=== PATIENT | female | born 1945 | race Caucasian/White ===

== ENCOUNTER → 2018-03-09 10:55 | Outpatient (CLI) | payer MEDICARE, OTHER, SELFPAY ==
[2018-03-09 13:05] LABS: Abs Immature Grans 0.01 k/cumm (0.0-0.09); Absolute Basophil Count 0.02 k/cumm (0.0-0.2); Absolute Eosinophil Count 0.14 k/cumm (0.0-0.7); Absolute Lymphocyte Count 1.67 k/cumm (1.2-3.4); Absolute Monocyte Count 0.35 k/cumm (0.11-0.7); Absolute Neutrophil Count 3.32 k/cumm (1.2-6.7); Basophils % 0.4; Eosinophils % 2.5; HCT 38.4 % (36.0-46.0); HGB 12.8 g/dL (12.0-15.5); Immature Grans % 0.2; Lymphocytes % 30.3; Mean Corp. HGB Concentration 33.3 g/dL (32.0-36.0); Mean Corpuscular Hemoglobin 31.7 pg (27.0-33.0); Mean Platelet Volume 11.2 fL (8.0-11.0); Monocytes % 6.4; Neutrophils % 60.2; Platelet Count 235 x1000/uL (130-400); RBC 4.04 m/cumm (4.00-5.20); White Blood Cell Count 5.51 k/cumm (4.4-10.8)
[2018-03-09 13:08] LABS: TSH (W/Ref FT4) 2.08 uIU/mL (0.358-3.74)
[2018-03-09 14:30] LABS: Hemoglobin A1C 6.6 % (4.5-6.2)
== END ==
PROVIDERS: PCP Family Medicine; Visit Provider Internal Medicine
DX: D64.9 Anemia, unspecified (principal); E03.9 Hypothyroidism, unspecified; E11.9 Type 2 diabetes mellitus without complications; J40 Bronchitis, not specified as acute or chronic
CPT/HCPCS: 36415; 83036; 84443; 85025

== ENCOUNTER → 2018-03-11 15:13 | Outpatient (CLI) | payer MEDICARE, OTHER, SELFPAY ==
--- NOTE | 2018-03-11 15:18 | DI.REPORT_ITS ---
SYMPTOM/DIAGNOSIS: WORSENING SOB, SUSPECTING PNEUMONIA J18.9 PA AND LATERAL CHEST: 03/11 The heart is normal in size. The lungs are clear. The mediastinal structures and pleura appear intact. CONCLUSION: Normal chest.
== END ==
PROVIDERS: PCP Family Medicine; Visit Provider Nurse Practitioner Family
DX: R06.02 Shortness of breath (principal); J18.9 Pneumonia, unspecified organism
CPT/HCPCS: 71046

== ENCOUNTER 2018-06-22 11:18 | Outpatient (CLI) | payer MEDICARE, OTHER, SELFPAY ==
[2018-06-22 13:44] LABS: ALT 36 U/L (12-78); AST 22 U/L (15-37); Albumin 4.2 g/dL (3.4-5.0); Alkaline Phosphatase 122 U/L (46-116); BUN 31 mg/dL (7-18); Bilirubin, Total 0.6 mg/dL (0.2-1.0); CREATININE 1.03 mg/dL (0.55-1.02); Calcium 9.7 mg/dL (8.5-10.1); Chloride 103 mmol/L (98-107); Estimated GFR 52.82 (mL/min/1.73m2); Glucose 117 mg/dL (70-100); Potassium 4.3 mmol/L (3.5-5.1); Sodium 141 mmol/L (136-145); TSH (W/Ref FT4) 2.24 uIU/mL (0.358-3.74); Total Protein 7.6 g/dL (6.4-8.2); Uric Acid 5.2 mg/dL (2.6-6.0)
[2018-06-22 13:55] LABS: Cholesterol 245 mg/dL (50-200); HDL Cholesterol 33 mg/dL (40-60); LDL CHOLESTEROL 127 mg/dL (<100); Triglyceride 441 mg/dL (30-150)
[2018-06-22 14:16] LABS: COMMENT (LAB VIEW ONLY) < 13.00 mg/dL
[2018-06-22 14:50] LABS: Hemoglobin A1C 6.5 % (4.5-6.2)
== END 2018-06-22 11:38 ==
PROVIDERS: PCP Family Medicine; Visit Provider Family Medicine
DX: E78.5 Hyperlipidemia, unspecified (principal); I10 Essential (primary) hypertension; E11.9 Type 2 diabetes mellitus without complications; E03.9 Hypothyroidism, unspecified
CPT/HCPCS: 36415; 80053; 80061; 83721; 82043; 82570; 83036; 84443; 84550

== ENCOUNTER 2018-07-06 00:58 | Outpatient (CLI) | payer MEDICARE, OTHER, SELFPAY ==
--- NOTE | 2018-07-06 08:30 | DI.MAMMO_ITS ---
SYMPTOM/DIAGNOSIS: SCREENING, Z12.31 MAMMOGRAMS: Mammograms were interpreted according to the usual protocol including computer analysis with CAD system, tomosynthesis and C view imaging. Comparison is made with exams from 2270-7100. The breasts are composed of scattered fibroglandular densities, breast density, Category B. No suspicious masses or suspicious microcalcifications are seen. There has been no significant change. IMPRESSION: Category 1B, negative mammogram. Yearly screening mammography is recommended. [facility] ASSESSMENT OF FINDINGS: Negative. Category 1. Patient will receive a letter notifying them of these results. BI-RADS category B. There are scattered areas of fibroglandular density.
== END 2018-07-06 01:18 ==
PROVIDERS: PCP Family Medicine; Visit Provider Family Medicine
DX: Z12.31 Encounter for screening mammogram for malignant neoplasm of breast (principal)
CPT/HCPCS: 77063; 77067

== ENCOUNTER 2018-12-05 22:23 | Emergency (ER) | payer MEDICARE, OTHER, SELFPAY ==
[2018-12-05 22:29] VITALS: BP 214/67; PULSE 66; RESP 18; TEMP 36.6; O2SAT 96
--- NOTE | 2018-12-05 22:37 | DI.CT_ITS ---
SYMPTOMS/DIAGNOSIS: RINGING IN EARS, VERTIGO NONCONTRAST HEAD CT: Comparison is made with [id number]. No intracranial hemorrhage, mass or infarct is seen. There is no evidence of skull fracture or sinus opacification. The ventricles are normal in size. There is no significant atrophy or white matter changes. IMPRESSION: Negative head CT.
[2018-12-05 22:40] VITALS: RESP 18
[2018-12-05] MEDS: Normal Saline 1,000 ML 150 ML IV (23:02)
[2018-12-05 23:14] LABS: Abs Immature Grans 0.01 k/cumm (0.0-0.09); Absolute Basophil Count 0.02 k/cumm (0.0-0.2); Absolute Eosinophil Count 0.19 k/cumm (0.0-0.7); Absolute Lymphocyte Count 2.25 k/cumm (1.2-3.4); Absolute Monocyte Count 0.51 k/cumm (0.11-0.7); Absolute Neutrophil Count 3.53 k/cumm (1.2-6.7); Basophils % 0.3; Eosinophils % 2.9; HCT 40.4 % (36.0-46.0); Immature Grans % 0.2; Lymphocytes % 34.6; Mean Corp. HGB Concentration 34.7 g/dL (32.0-36.0); Mean Corpuscular Hemoglobin 32.4 pg (27.0-33.0); Mean Corpuscular Volume 93.5 fL (80-95); Monocytes % 7.8; Neutrophils % 54.2; Platelet Count 206 x1000/uL (130-400); RBC 4.32 m/cumm (4.00-5.20); RBC Distribution Width 14.3 % (11.7-14.6); White Blood Cell Count 6.51 k/cumm (4.4-10.8)
[2018-12-05 23:19] VITALS: BP 160/60; PULSE 66; RESP 18; O2SAT 97
--- NOTE | 2018-12-05 23:22 | ED.GENADUL_ITS ---
Discharge Plan Disposition Patient Disposition: HOME Condition: Fair Discharge Details Chief Complaint: GenMedical Clinical Impression: Acute labyrinthitis Primary Care Provider: Helen Jimenez ED Provider: Treasure Figueroa Home Meds and New Rx's Prescriptions: New meclizine 25 mg tablet 25 mg PO TID PRN (Reason: motion sickness) Qty: 14 RF: 0 Continued rosuvastatin 5 mg tablet 5 mg PO DAILY Qty: 30 RF: 5 omega-3 fatty acids 1,000 MG capsule 1,000 mg PO DAILY RF: 0 cholecalciferol (vitamin D3) 1,000 UNIT capsule 1,000 unit PO DAILY Qty: 180 RF: 4 multivitamin [Multi-Day] 1 EACH tablet 1 ea PO DAILY RF: 0 spironolactone [Aldactone] 25 MG tablet 25 mg PO DAILY Qty: 180 RF: 4 levothyroxine 100 MCG tablet 100 mcg PO DAILY Qty: 90 RF: 12 furosemide [Lasix] 80 MG tablet 80 mg PO QAM Qty: 90 RF: 4 allopurinol 300 MG tablet 300 mg PO DAILY Qty: 90 RF: 4 magnesium chloride [Mag 64] 64 MG tablet,delayed release (DR/EC) 64 mg PO DAILY Qty: 90 RF: 12 potassium chloride 20 mEq tablet,ER particles/crystals 20 meq PO DAILY Qty: 90 RF: 12 vitamin B complex [B-Complex] tablet 1 tab PO QWEEK RF: 0 No Action levothyroxine 112 mcg capsule 112 mcg PO DAILY Qty: 30 RF: 1 Discharge Instructions Instructions: Meclizine (By mouth), Labyrinthitis (ED) Additional Instructions: Your labs and CT scan are reassuring. Encourage hydration. Use Meclizine 25mg tablets 3 days a day as needed for symptomatic relief. Continue with medications as previously prescribed. Please follow up with your primary care this week for reevaluation. If you develop headache, palpitations, chest pain, fevers/chills, weakness, sensation change or other new/worsening symptoms please seek care urgently once again. Referrals: Helen Jimenez MD, [place] [Primary Care Provider] - Discharge Data Discharge Date/Time-TO BE ENTERED AT DEPARTURE: 12/06/18 00:43 Medical Decision Making Patient is a 73-year-old female presenting today with chief complaint of disequilibrium and ringing in the ears. Ringing the ears has been ongoing for the past week. She denies any head trauma or headache. No recent illness. Denies any palpitations, chest pain, shortness of breath. She reports that tonight when she tried to go to sleep she was unable to do so secondary to the disequilibrium. Denies any URI symptoms. Began rosuvastatin 2 weeks ago. I reviewed UpToDate and do not see any evidence that this is the source of her symptoms although still on differential. On exam, patient appears well, she is nontoxic, resting comfortably. Neuroexam, cardiac and pulmonary exam without abnormality. Trice maneuver was provocative of symptoms to the right, no symptoms to the left. No nystagmus. She reports, when symptoms are elicited, that the room appears to shift on a diagonal axis, still denies any dizziness or spinning. Plan to obtain labs, head CT. Her symptoms sound to be vertiginous in origin as they are so motion dependent. While her description does not sound classic for vertigo, this is on differential. Also concidered medication reaction, intracranial lesion/mass, cardiac souce although ACS unlikely with history and symptoms. Labs significant for slightly elevated alk phos, this is typical for the patient. TSH 7.21, free T4 pending. CT reviewed by radiologist: COMPARISON: CT HEAD AND CSPINE W/O CONTRAST 07/06/2015 12:37 PM FINDINGS: Brain: Typical for age. No hemorrhage. No evidence of acute infarct. No mass. Ventricles: No ventriculomegaly. Bones/joints: Unremarkable. Sinuses: No sinus fluid. Mastoid air cells: Unremarkable. Soft tissues: Unremarkable. IMPRESSION: No acute intracranial abnormality. Free T4 0.89. Discussed findings with the patient. Will given Meclizine and reassess. Her symptoms seem vertiginously based and are elicited with supine and right leaning position. She reports it was when laying on her right side tonight that symptoms maximalized at home. We discussed possible source of labyrinthitis. Patient feels improved with Meclizine, will be discharged home. She is questioning if this is associated with her medication, do not see evidence argelia tthis is source, advised she continue with this. This medication can cause thyr oid disfunction but free T4 is appropriate. She is feeling improved. Plan to discharge to home with prompt follow up with primary care. No evidence of emergent cause at this time. Patietn given strict return precautions. She will call PCP tomorrow morning to schedule appointment this week. All of her questions and concerns were addressed, she is in agreement with this plan. Will continue with Meclizine for symptomatic management. HPI General Mode of arrival: ambulatory . Date/Time Provider Initiated Documentation: 12/05/18 22:25 . Limitations to Documentation: no limitations . Information obtained by: patient, family and RN notes reviewed . HPI Narrative: Patient is a 73-year-old female with history of tachybradycardia syndrome, sleep apnea, retinal detachment, hypothyroidism, hyperlipidemia, osteoarthritis, hypertension, diabetes, cardiomyopathy. She is presenting today, accompanied by her , with chief complaint of odd sensation. She reports that for the past week she has noted ringing in her ears. Initially, patient was concerned that this may be associated with new medication, patient began rosuvastatin 2 weeks ago. She reports that over the past 2 days that she has noted disequilibrium. She denies any true dizziness but states that with movements, she becomes unaware of where she is in space i.e. when the patient lays down she feels that she is in an extreme of Trendelenburg position. She denies any headache but endorses facial pressure. No nasal congestion or sinus pain. Denies any fevers or chills. Denies any recent head injury. No recent travel. She denies any chest pain or shortness of breath. No nausea associated with her symptoms. Has not had symptoms like this historically but does report that she has had multiple syncopal episodes particularly when she was younger Related Data Home Medications Medication Instructions Recorded Confirmed cholecalciferol (vitamin D3) 1,000 unit PO DAILY #180 01/27/13 12/08/18 omega-3 fatty acids 1,000 mg PO DAILY 01/27/13 12/08/18 multivitamin [Multi-Day] 1 ea PO DAILY 10/07/16 12/08/18 allopurinol 300 mg PO DAILY #90 tab-cap 11/24/17 12/08/18 furosemide [Lasix] 80 mg PO QAM #90 tab-cap 11/24/17 12/08/18 levothyroxine 100 mcg PO DAILY #90 tab-cap 11/24/17 12/08/18 magnesium chloride [Mag 64] 64 mg PO DAILY #90 tab-cap 11/24/17 12/08/18 spironolactone [Aldactone] 25 mg PO DAILY #180 tab-cap 11/24/17 12/08/18 potassium chloride ER 20 mEq 20 meq PO DAILY #90 tab-cap 08/07/18 12/08/18 tablet,extended release(part/cryst) vitamin B complex tablet 1 tab PO QWEEK tab 10/20/18 12/08/18 rosuvastatin 5 mg tablet 5 mg PO DAILY #30 tab 11/14/18 12/08/18 meclizine 25 mg PO TID PRN #14 tab 12/06/18 12/08/18 levothyroxine 112 mcg capsule 112 mcg PO DAILY #30 cap 12/08/18 12/08/18 Previous Rx's Medication Instructions Recorded allopurinol 300 mg PO DAILY #90 tab-cap 11/24/17 furosemide [Lasix] 80 mg PO QAM #90 tab-cap 11/24/17 levothyroxine 100 mcg PO DAILY #90 tab-cap 11/24/17 magnesium chloride [Mag 64] 64 mg PO DAILY #90 tab-cap 11/24/17 spironolactone [Aldactone] 25 mg PO DAILY #180 tab-cap 11/24/17 potassium chloride ER 20 mEq 20 meq PO DAILY #90 tab-cap 08/07/18 tablet,extended release(part/cryst) rosuvastatin 5 mg tablet 5 mg PO DAILY #30 tab 11/14/18 meclizine 25 mg PO TID PRN #14 tab 12/06/18 levothyroxine 112 mcg capsule 112 mcg PO DAILY #30 cap 12/08/18 Allergies Allergy/AdvReac Type Severity Reaction Status Date / Time Penicillins Allergy Severe HIVES Verified 12/08/18 10:52 celery Allergy Intermediate SNEEZING Verified 12/08/18 10:52 AND RASH latex Allergy Intermediate RASH Verified 12/08/18 10:52 niacin Allergy Intermediate HIVES Verified 12/08/18 10:52 atorvastatin AdvReac Intermediate VOMITING/DI Verified 12/08/18 10:52 ZZINESS gabapentin AdvReac Intermediate Other (See Verified 12/08/18 10:52 Comment) gemfibrozil AdvReac Intermediate Verified 12/08/18 10:52 nifedipine AdvReac Intermediate cough Verified 12/08/18 10:52 rofecoxib AdvReac Intermediate stomach Verified 12/08/18 10:52 upset General Stated Complaint: GenMedical VICK: 3 Review of Systems Constitutional Reports as per HPI, Denies chills, Denies fever(s), Denies headache(s), Denies lethargy, Denies poor appetite and Denies weakness Eyes Denies change in vision and Denies loss of vision ENT Reports as per HPI, Reports abnormal hearing (ringing), Denies vertigo, Denies dizziness, Denies ear discharge, Denies otalgia, Denies headache(s) and Reports disequilibrium Cardiovascular Reports as per HPI, Denies chest pain, Denies syncope, Denies lightheadedness, Denies radiating jaw, neck or arm pain, Denies palpitations, Denies dyspnea and Denies dyspnea on exertion Respiratory Reports as per HPI, Denies chest congestion, Denies cough, Denies pain on inspiration, Denies pain with cough, Denies dyspnea, Denies dyspnea on exertion and Denies wheezing Gastrointestinal Reports as per HPI, Denies abdominal pain, Denies diarrhea, Denies nausea and Denies vomiting Musculoskeletal Reports as per HPI, Denies abnormal gait, Denies back pain and Denies tingling Integumentary/Breasts Reports as per HPI and Denies rash Neurologic Reports as per HPI, Reports abnormal hearing (ringing), Denies abnormal movements, Denies abnormal speech, Denies abnormal gait, Denies behavioral changes, Denies confusion, Denies vertigo, Denies dizziness, Denies syncope, Denies headache(s), Denies lack of coordination, Denies focal weakness, Denies loss of vision, Denies sensory deficit, Denies tingling, Denies paresthesias, Reports disequilibrium and Denies weakness Psychiatric Denies behavioral changes and Denies confusion Endocrine Denies palpitations Allergic/Immunologic Denies wheezing FOR[facility]LY [facility], [facility] Medical History Tachycardia-bradycardia (Chronic 11/24/17) Traumatic injury of head (Chronic 07/06/15) Sleep apnea (Chronic) Retinal detachment (Chronic 10/20/08) Low back pain (Chronic 06/26/06) Increased BMI (Chronic) Hypothyroidism (Chronic 04/12/13) Hyperlipidemia (Chronic) Hiatal hernia (Chronic) Hemorrhoids (Chronic) Gout (Chronic) Generalized osteoarthrosis (Chronic) Essential hypertension (Chronic 08/03/13) Diabetes mellitus (Chronic 10/01/16) Complete tear of rotator cuff (Chronic 12/03/16) Cardiomyopathy (Chronic 01/13/17) Cardiomegaly (Chronic 06/26/01) Surgical History Arthroplasty of knee (~2009) BONE SPUR section Cholecystectomy (~2002) Colonoscopy - MAC HAND (08/06/11) NECK PROCEDURES Rotator Cuff Repair Social History Smoking/Tobacco Use Status: Never Second Hand Exposure: Yes (25+ YEARS AGO) Alcohol Intake: never Drug use: Never Substance use type: does not use Household members: spouse 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 What type of physical activity do you participate in: none Duration: 15-30 minutes/day Frequency: daily Michelle/Islam: Catholic Special michelle needs: No Do you feel safe at home: Yes Do you feel safe in your relationship?: Yes Exam Const General: cooperative, healthy appearing, comfortable, no acute distress and well developed Nutritional Appearance: average body habitus and well nourished Orientation: alert, awake and oriented x3 HENMT Head: normal to inspection Ears: hearing grossly normal bilaterally Mouth: moist mucous membranes Eyes General: appearance normal, both eyes and all related structures Alignment and Position: alignment normal Periorbital: periorbital findings normal Eyelids: eyelids normal Pupils: PERRL and normal by confrontation EOM: EOM intact bilaterally Direct ophthalmoscopy: normal light reflex Chest Chest: normal inspection of the chest, normal palpation of entire chest wall and no crepitus Resp Effort & Inspection: normal respiratory effort, able to speak in complete sentences and no respiratory distress Auscultation: clear to auscultation bilaterally, no rales, no rhonchi and no wheezes Cardio Rate: regular rate Rhythm: regular rhythm Heart Sounds: S1 normal and S2 normal GI Inspection: normal to inspection, no edema and non-distended Palpation: soft, no hepatosplenomegaly, not firm, no guarding, not rigid and nontender Auscultation: normal bowel sounds Back/Spine/Pelvis Back: no CVA tenderness Thoracic/Lumbar Spine: thoracic and lumbar spine normal to inspection Skin General skin exam: no rashes or lesions noted Trauma: no lacerations or abrasions Neuro General: alert, awake, oriented x3 and no meningeal signs Cranial Nerves: CN's II-XI intact bilaterally Cognition: normal cognition Speech: speech normal Gait: normal gait Motor: muscle tone normal throughout, strength 5/5 throughout, no pronator drift, no movement abnormalities noted and no fasciculations Sensory Exam: no sensory deficits noted Coordination: [id number] test normal, [id number] test normal and rapid alternating movement UE normal Extrem General: normal to inspection, normal capillary refill, no pedal edema, no calf tenderness and normal gait Psych Appearance: grossly normal and well kempt Mental Status: mental status grossly normal Speech and Movement: speech and movement normal Course Vital Signs Temperature 36.6 C 12/05/18 22:29 Pulse 66 12/05/18 22:29 Respiratory Rate 18 12/05/18 22:29 Blood Pressure 214/67 H 12/05/18 22:29 Pulse Oximetry 96 12/05/18 22:29 Temperature 36.6 C 12/05/18 22:29 Temperature Source Skin 12/05/18 22:29 Pulse 66 12/05/18 22:29 Respiratory Rate 18 12/05/18 22:40 Respiratory Effort Non-Labored 12/05/18 22:40 Respiratory Depth Normal 12/05/18 22:40 Respiratory Pattern Normal 12/05/18 22:40 Blood Pressure 214/67 H 12/05/18 22:29 Blood Pressure Position Sitting 12/05/18 22:29 Pulse Oximetry 96 12/05/18 22:29 Oxygen Delivery Method Room Air 12/05/18 22:29 Oxygen Flow Rate 0 12/05/18 22:29 Pain Level 0 12/05/18 22:29 Lab/Test Results Lab/Test Results: Laboratory Tests Range/Units 12/05/18 22:54 WBC (4.4-10.8) k/cumm 6.51 RBC (4.00-5.20) m/cumm 4.32 Hgb (12.0-15.5) g/dL 14.0 Hct (36.0-46.0) % 40.4 MCV (80-95) fL 93.5 MCH (27.0-33.0) pg 32.4 MCHC (32.0-36.0) g/dL 34.7 RDW (11.7-14.6) % 14.3 Plt Count (130-400) x1000/uL 206 MPV (8.0-11.0) fL 11.0 Immature Gran % 0.2 Neutrophils % 54.2 Lymphocytes % 34.6 Monocytes % 7.8 Eosinophils % 2.9 Basophils % 0.3 Absolute Neutrophils (1.2-6.7) k/cumm 3.53 Absolute Lymphocytes (1.2-3.4) k/cumm 2.25 Absolute Monocytes (0.11-0.7) k/cumm 0.51 Absolute Eosinophils (0.0-0.7) k/cumm 0.19 Absolute Basophils (0.0-0.2) k/cumm 0.02
[2018-12-05 23:30] LABS: ALT 38 U/L (12-78); Albumin 3.9 g/dL (3.4-5.0); Alkaline Phosphatase 134 U/L (46-116); Anion Gap 7.3 mmol/L (3-11); BUN 33 mg/dL (7-18); Bilirubin, Total 0.3 mg/dL (0.2-1.0); CO2 29.7 mmol/L (21.0-32.0); CREATININE 0.94 mg/dL (0.55-1.02); Calcium 9.2 mg/dL (8.5-10.1); Chloride 102 mmol/L (98-107); Estimated GFR 58.53 (mL/min/1.73m2); Glucose 165 mg/dL (70-100); Magnesium 2.1 mg/dL (1.8-2.4); Potassium 3.8 mmol/L (3.5-5.1); Sodium 139 mmol/L (136-145); Total Protein 7.6 g/dL (6.4-8.2)
[2018-12-05 23:32] LABS: Troponin I < 0.02 ng/mL (0.00-0.06)
[2018-12-05 23:38] LABS: TSH (W/Ref FT4) 7.21 uIU/mL (0.358-3.74)
--- NOTE | 2018-12-05 23:42 | DI.VRAD_ITS ---
EXAM: CT Head Without Contrast EXAM DATE/TIME: 12/05/2018 10:39 PM CLINICAL HISTORY: 73 years old, female; Signs and symptoms; Other: Ringing in ears, vertigo TECHNIQUE: Imaging protocol: Axial computed tomography images of the head/brain without contrast. Coronal and sagittal reformatted images were created and reviewed. COMPARISON: CT HEAD AND CSPINE W/O CONTRAST 07/06/2015 12:37 PM FINDINGS: Brain: Typical for age. No hemorrhage. No evidence of acute infarct. No mass. Ventricles: No ventriculomegaly. Bones/joints: Unremarkable. Sinuses: No sinus fluid. Mastoid air cells: Unremarkable. Soft tissues: Unremarkable. IMPRESSION: No acute intracranial abnormality. Dictated and Authenticated by: Gurinder Trevino MD. Ordering:JAMES Amanda MD
[2018-12-05 23:54] LABS: AST 10 U/L (15-37); FREE T4 0.89 ng/dL (0.76-1.46)
[2018-12-06] MEDS: Meclizine 25 MG TAB PO ×2 (00:08→00:37)
[2018-12-06 00:32] VITALS: BP 129/61; PULSE 61; RESP 16; TEMP 36.7; O2SAT 96
== END 2018-12-06 00:43 | disposition home or self-care (01) ==
PROVIDERS: Emergency Provider Physician Assistant; PCP Family Medicine
DX: H83.03 Labyrinthitis, bilateral (principal)
CPT/HCPCS: 36415; 80053; 96360; 96361; 99284; 70450; 83735; 84439; 84443; 84484; 85025

== ENCOUNTER 2019-02-18 01:59 | Outpatient (CLI) | payer MEDICARE, OTHER, SELFPAY ==
[2019-02-18 12:16] LABS: Hemoglobin A1C 6.8 % (4.5-6.2)
[2019-02-18 12:59] LABS: ALT 50 U/L (12-78); AST 23 U/L (15-37); Albumin 3.8 g/dL (3.4-5.0); Alkaline Phosphatase 123 U/L (46-116); Anion Gap 10.3 mmol/L (3-11); BUN 33 mg/dL (7-18); Bilirubin, Total 0.5 mg/dL (0.2-1.0); CO2 28.7 mmol/L (21.0-32.0); CREATININE 0.99 mg/dL (0.55-1.02); Calcium 9.2 mg/dL (8.5-10.1); Chloride 104 mmol/L (98-107); Cholesterol 189 mg/dL (50-200); Estimated GFR 55.14 (mL/min/1.73m2); Glucose 135 mg/dL (70-100); HDL Cholesterol 27 mg/dL (40-60); Magnesium 1.9 mg/dL (1.8-2.4); Potassium 4.9 mmol/L (3.5-5.1); Sodium 143 mmol/L (136-145); TSH (W/Ref FT4) 2.63 uIU/mL (0.36-3.74); Total Protein 6.8 g/dL (6.4-8.2); Triglyceride 513 mg/dL (30-150)
[2019-02-18 13:13] LABS: LDL CHOLESTEROL 71 mg/dL (<100)
[2019-02-18 13:36] LABS: Uric Acid 4.8 mg/dL (2.6-6.0)
== END 2019-02-18 02:19 ==
PROVIDERS: PCP Family Medicine
DX: E03.9 Hypothyroidism, unspecified (principal); E11.9 Type 2 diabetes mellitus without complications; E78.5 Hyperlipidemia, unspecified; I10 Essential (primary) hypertension; M10.9 Gout, unspecified
CPT/HCPCS: 36415; 80053; 80061; 83721; 83036; 83735; 84443; 84550

== ENCOUNTER 2019-07-22 00:38 | Outpatient (CLI) | payer MEDICARE, OTHER, SELFPAY ==
--- NOTE | 2019-07-22 07:41 | DI.MAMMO_ITS ---
EXAM: MG MAMMO SCREENING CLINICAL HISTORY: screening, Z12.39 TECHNIQUE: Bilateral full field digital CC and MLO mammographic images were obtained with 3D tomosyn thesis and utilizing computer aided detection (CAD). COMPARISON: Available for comparison. FINDINGS: Masses/Architectural Distortion: None seen. Microcalcifications: No suspicious pleomorphic-type are seen. Skin Thickening/Nipple Retraction: None. IMPRESSION: 1. No significant interval change with no specific features of malignancy noted. 2. Unless there is more urgent need, screening mammography is recommended, as per [employer] guidelines. ACR BI-RAD Category- 1 Negative Breast Density - Category B - Scattered areas of fibroglandular density A negative radiographic report should not delay biopsy if a dominant or clinically suspicious mass is present. Up to ten percent of cancers are not identified on mammography. A negative report may reinforce clinical impression. Adenosis and dense breasts may obscure an underlying neoplasm. False positive reports average 6 to 10%. Patient will receive a letter notifying them of these results.
== END 2019-07-22 00:58 ==
PROVIDERS: PCP Family Medicine; Visit Provider Family Medicine
DX: Z12.31 Encounter for screening mammogram for malignant neoplasm of breast (principal)
CPT/HCPCS: 77063; 77067

== ENCOUNTER 2019-09-19 22:24 | Emergency (ER) | payer MEDICARE, OTHER, SELFPAY ==
[2019-09-19 22:28] VITALS: BP 170/80; PULSE 71; RESP 16; TEMP 36.4; O2SAT 96
--- NOTE | 2019-09-19 22:39 | W.ED.GENAD ---
Discharge Plan Disposition Patient Disposition: HOME Condition: Stable Discharge Details Chief Complaint: Nk/Back Pain Clinical Impression: Back pain, Back pain, thoracic Primary Care Provider: Helen Jimenez ED Provider: Blaine Michelle Home Meds and New Rx's Prescriptions: New cyclobenzaprine 10 mg tablet 10 mg PO TID PRN (Reason: muscle spasm) Qty: 20 RF: 0 Continued allopurinol 300 mg tablet 150 mg PO DAILY RF: 0 furosemide [Lasix] 80 mg tablet 40 mg PO QAM RF: 0 omega-3 fatty acids 1,000 MG capsule 1,000 mg PO DAILY RF: 0 cholecalciferol (vitamin D3) 1,000 UNIT capsule 1,000 unit PO DAILY Qty: 180 RF: 4 multivitamin [Multi-Day] 1 EACH tablet 1 ea PO DAILY RF: 0 magnesium chloride [Mag 64] 64 MG tablet,delayed release (DR/EC) 64 mg PO DAILY Qty: 90 RF: 12 vitamin B complex [B-Complex] tablet 1 tab PO QWEEK RF: 0 levothyroxine 112 mcg capsule 112 mcg PO DAILY Qty: 90 RF: 3 spironolactone [Aldactone] 25 mg tablet 25 mg PO DAILY Qty: 180 RF: 4 rosuvastatin 5 mg tablet 5 mg PO DAILY Qty: 90 RF: 5 potassium chloride 20 mEq tablet,ER particles/crystals 20 meq PO DAILY Qty: 90 RF: 12 Discharge Instructions Instructions: Back Pain (ED) Additional Instructions: your lab work showed a mild increase in your liver function tests and the cat scan only showed a lung nodule. Your primary care provider should know about these to order additional testing in the future and follow up with them within a week if you have fevers, severe worsening pain or new pain such as abdominal pain or chest pain return to the emergency department. Also return for inability to urinate or weakness Medical Decision Making 73 yo female with hx of DM, htn, gout, comes in with 2 days of back pain. She states she had cold symptoms of dry cough and runny nose that resolved but then Friday started to have upper back pain that since has moved to the lower back and has shooting pain in the arms and legs and numbness in the hands. Denies chest pain, abdominal pain, weankess, urinary retention, fevers. She has steady gait, normal reflexes in the legs and no saddle anesthesia, no findings to suggest cauda equina or sea. Her pain is most in the lower mid back without palpable or visible deformities. She has no rashes. NOrmal pulses. This could be sciatica vs muscle spasm but given the numbness and shooting pains in the arms and legs concern for aortic dissection, will obtain labs and cta and monitor. patient's cta shows no acute findings, informed her of lung nodule. Labs show mild elevation of lfts and has no abd tenderness on exam, advised to have these repeated with pcp. She feels significantly better and still has no concerning neurological findings. Suspect musculoskeletal cause vs sciatica. Will try muscle relaxers and advised to f/u with pcp and return precautions given Differential Diagnosis Differential Diagnosis: dissection, spasm, sciatica Medical Records Medical records reviewed: Yes I reviewed the patient's medical records. Imaging Data Radiologic Study: Attestation: I personally reviewed and interpreted this imaging study as follows: Imaging: CT Scan Radiologist's impression: 2. Right middle lobe nodular opacities measuring up to 7 mm. As per Fleischner Society 2017 guidelines for follow-up and management of pulmonary nodules: For patients at low risk (minimal or absent history of smoking and of other known risk factors), recommend CT at 3-6 months, then consider CT at 18-24 months. For patient at high risk (history of smoking or of other known risk factors), recommend CT at 3-6 months, then CT at 18-24 months. Lab Data Lab results reviewed: Yes I reviewed the patient's lab results. ECG Data Attestation: I personally reviewed and interpreted this ECG (s) as follows: Prior ECG tracings: not available for review Interpretation: sinus rhythm, rate of 60, pr 164, qtc 432 HPI General Mode of arrival: ambulatory. Date/Time Provider Initiated Documentation: 09/19/19 22:24. Limitations to Documentation: no limitations. Information obtained by: patient. History of Present Illness 73 year old F presents to the emergency department with the chief complaint of back pain, described as moderate, Patient started experiencing this day(s) (2) and it has been constant. No relieving factors improve symptom(s), No exacerbating factors reported . Patient did receive the following treatments prior to arrival, NSAID Related Data Home Medications Medication Instructions Recorded Confirmed cholecalciferol (vitamin D3) 1,000 unit PO DAILY #180 01/27/13 09/19/19 omega-3 fatty acids 1,000 mg PO DAILY 01/27/13 09/19/19 multivitamin [Multi-Day] 1 ea PO DAILY 10/07/16 09/19/19 magnesium chloride [Mag 64] 64 mg PO DAILY #90 tab-cap 11/24/17 09/19/19 vitamin B complex 1 tab PO QWEEK tab 10/20/18 09/19/19 levothyroxine 112 mcg capsule 112 mcg PO DAILY #90 cap 02/21/19 09/19/19 spironolactone 25 mg tablet 25 mg PO DAILY #180 tab-cap 02/23/19 09/19/19 potassium chloride 20 mEq 20 meq PO DAILY #90 tab-cap 06/18/19 09/19/19 tablet,extended release(part/cryst) rosuvastatin 5 mg tablet 5 mg PO DAILY #90 tab 06/18/19 09/19/19 allopurinol 300 mg tablet 150 mg PO DAILY tab-cap 06/28/19 09/19/19 furosemide 80 mg tablet 40 mg PO QAM tab-cap 06/28/19 09/19/19 cyclobenzaprine 10 mg PO TID PRN #20 tab 09/19/19 Previous Rx's Medication Instructions Recorded magnesium chloride [Mag 64] 64 mg PO DAILY #90 tab-cap 11/24/17 levothyroxine 112 mcg capsule 112 mcg PO DAILY #90 cap 02/21/19 spironolactone 25 mg tablet 25 mg PO DAILY #180 tab-cap 02/23/19 potassium chloride 20 mEq 20 meq PO DAILY #90 tab-cap 06/18/19 tablet,extended release(part/cryst) rosuvastatin 5 mg tablet 5 mg PO DAILY #90 tab 06/18/19 cyclobenzaprine 10 mg PO TID PRN #20 tab 09/19/19 Allergies Allergy/AdvReac Type Severity Reaction Status Date / Time Penicillins Allergy Severe HIVES Verified 09/19/19 22:33 celery Allergy Intermediate SNEEZING Verified 09/19/19 22:33 AND RASH latex Allergy Intermediate RASH Verified 09/19/19 22:33 niacin Allergy Intermediate HIVES Verified 09/19/19 22:33 atorvastatin AdvReac Intermediate VOMITING/DI Verified 09/19/19 22:33 ZZINESS gabapentin AdvReac Intermediate Other (See Verified 09/19/19 22:33 Comment) gemfibrozil AdvReac Intermediate Verified 09/19/19 22:33 nifedipine AdvReac Intermediate cough Verified 09/19/19 22:33 rofecoxib AdvReac Intermediate stomach Verified 09/19/19 22:33 upset General Stated Complaint: Nk/Back Pain VICK: 4 Review of Systems All systems reviewed & are unremarkable except as noted in HPI and below Constitutional Constitutional: Denies chills, Denies fever(s) and Denies weakness Cardiovascular Cardiovascular: Denies chest pain and Denies dyspnea Respiratory Respiratory: Denies cough and Denies dyspnea Gastrointestinal Gastrointestinal: Denies abdominal pain, Denies nausea and Denies vomiting Musculoskeletal Musculoskeletal: Denies joint swelling Neurologic Neurologic: Denies weakness Psychiatric Psychiatric: Denies depression COUNTS INCLUDE 234 BEDS AT THE [facility] Medical History (Updated 09/19/19 @ 23:58 by Blaine Michelle MD) Cardiomegaly (Chronic 06/26/01) w/ echo in 2001; concentric LVH w/ EF 68%; echo 2005-systolic murmur; LVH, Mild LAE; diastolic dysfunction; EF-70%; bilateral enlargement Cardiomyopathy (Chronic 01/13/17) By MPI 01/11 Complete tear of rotator cuff (Chronic 12/03/16) Diabetes mellitus (Chronic 10/01/16) Essential hypertension (Chronic 08/03/13) labile hypertension w/ neg. metanephrines and catecholamines Generalized osteoarthrosis (Chronic) DJD LS spine; CT showed mild DJD; also left hip showed mild DJD Gout (Chronic) Hemorrhoids (Chronic) Hiatal hernia (Chronic) per upper GI Hyperlipidemia (Chronic) high triglycerides, decreased HDL Hypothyroidism (Chronic 04/12/13) thyroid nodule on CT,? 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 ROBBINS (L) Status post cholecystectomy (Inactive) Family History (Updated 06/28/19 @ 15:16 by Artur Dove) Mother Diabetes Essential hypertension Heart disease PACEMAKER Hyperlipidemia Depression Father , age 81 Diabetes Essential hypertension History of amputation of lower extremity SEPTICEMIA Heart disease Hypercholesterolemia Hyperlipidemia Alcohol abuse Sister Essential hypertension Sister Diabetes Essential hypertension Hyperlipidemia Brother , MVA at age 20. No problems noted. Maternal Grandfather , age 72 Heart disease Paternal Grandfather , PNEUMONIA at age 80. Heart disease Maternal Grandmother , age 58 Heart disease Paternal Grandmother , age 42 Diabetes Heart disease Son No problems noted. Daughter Depression Maternal Aunt Cancer Maternal Aunt Cancer Maternal Aunt Neoplasm Cancer Maternal Cousin Breast cancer Maternal Cousin Breast cancer Maternal Cousin Myocardial infarction Breast Cancer Niece Breast cancer Family History Hodgkin's disease Metastasis from cervical cancer Social History (Updated 06/28/19 @ 15:14 by Artur Dove) Smoking/Tobacco Use Status: Never Second Hand Exposure: Yes (25+ YEARS AGO) Alcohol Intake: never Drug use: Never Substance use type: does not use Caregiver/Support person: No Household members: spouse Housing: house Do you need help understanding health information?: Rarely 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 Pets and animals: No Sexually active: Yes Do you think of yourself as: straight/heterosexual Current gender identity: female What is your relationship status?: How often do you talk on the phone with friends or family?: three or more times per week How often do you get together with friends or relatives?: three or more times per week How often do you attend episcopal or latter day services?: 4 or more times per year Do you belong to any clubs or organized social groups?: yes Panel score (0-1 are the most socially isolated patients): 4 What type of physical activity do you participate in: walking and other Details: Ellipitcal, stationary bike, stairs Duration: 15-30 minutes/day Frequency: 3-4 times per week Michelle/Nondenominational: Synagogue Special michelle needs: No Seatbelt use: always Helmet use: Yes Helmet use: always Drive intox or ride w/intox student truck driver: No Do you feel safe at home: Yes Do you feel safe in your relationship?: Yes Exam Const General: no acute distress Orientation: alert HENMT Head: normal to inspection Ears: external ears normal General nose exam: external nose normal Mouth: moist mucous membranes Eyes General: appearance normal, both eyes and all related structures Neck Neck: normal visual inspection Resp Effort & Inspection: normal respiratory effort and able to speak in complete sentences Cardio Rate: regular rate Back/Spine/Pelvis Back: no CVA tenderness Skin General skin exam: no rashes or lesions noted Neuro General: alert and oriented x3 Extrem General: normal to inspection Psych Mental Status: mental status grossly normal Course Vital Signs Vital signs: Vital Signs Temperature 36.4 C L 09/19/19 22:28 Pulse 71 09/19/19 22:28 Respiratory Rate 16 09/19/19 22:28 Blood Pressure 170/80 H 09/19/19 22:28 Pulse Oximetry 96 09/19/19 22:28 Temperature 36.4 C L 09/19/19 22:28 Temperature Source Skin 09/19/19 22:28 Pulse 71 09/19/19 22:28 Respiratory Rate 16 09/19/19 22:28 Respiratory Effort Non-Labored 09/19/19 22:31 Blood Pressure 170/80 H 09/19/19 22:28 Blood Pressure Position Standing 09/19/19 22:28 Pulse Oximetry 96 09/19/19 22:28 Oxygen Delivery Method Room Air 09/19/19 22:28 Oxygen Flow Rate 0 09/19/19 22:28 Pain Level 10 09/19/19 22:31
--- NOTE | 2019-09-19 23:10 | DI.CT_ITS ---
EXAM: CT THORAX ABD/PEL CTA CLINICAL HISTORY: radiating back pain, numbness TECHNIQUE: Axial CT angiography was performed with multi-slice acquisition and multi-planar and/or 3 D reconstructions. COMPARISON: No exams were available for comparison FINDINGS: CT examination of the chest, abdomen, and pelvis was performed utilizing CT angiography protocol with intravenous infusion of 77 cc of Omnipaque 350. There is calcified plaque of the thoracic aorta, n o aneurysm or dissection. No gross evidence of pulmonary embolic disease, suboptimal opacification o f pulmonary arterial circulation. No mediastinal or hilar adenopathy. Tracheobronchial tree appears intact. Mild changes of pulmonary scarring, calcific right lung nodule noted, additionally right mi ddle lobe, noncalcified, 5-6 millimeter mean diameter nodule, follow-up recommended with low-dose CT of the chest in 6 months. No pleural effusion or pleural-based mass identified. Degenerative changes of the thoracic spine not ed. No gross compression fracture or destructive lesion. Incidental 2 cm greatest diameter left thyroid lobe nodule noted, low-attenuation, ultrasound correla tion recommended. Decreased hepatic attenuation noted. Pancreas is atrophic and contains some cystic changes, particul starr in the pancreatic head, these are not ideally characterized, pancreatic MR recommended for furth er evaluation to exclude cystic neoplasm. Gallbladder has been surgically removed. No biliary dilat ation. Unremarkable appearance of the spleen. No significant abdominal wall hernia. Adrenals unremarkable bilaterally. Small presumed left renal cysts noted. No urinary tract calcification or obstruction. Abdominal aorta is of normal diameter and contains calcified plaque. Unremarkable appearance of lin r abdominal arterial branches. No abdominal or pelvic adenopathy. No focal bowel pathology. 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 IMPRESSION: No evidence of acute process. Incidental findings, 5-6 millimeter mean diameter right middle lobe pu lmonary nodule, follow-up LD CT recommended in 6 months. Additionally 2 cm in diameter left thyroid lobe nodule should be evaluated ultrasonographically. MR of the pancreas also recommended to evaluate possible cystic pancreatic masses to assess the likel ihood of neoplastic disease.
[2019-09-19 23:13] LABS: ALT 183 U/L (14-59); AST 131 U/L (15-37); Albumin 3.6 g/dL (3.4-5.0); Alkaline Phosphatase 164 U/L (46-116); Anion Gap 7.8 mmol/L (3-11); BUN 20 mg/dL (7-18); Bilirubin, Total 0.5 mg/dL (0.2-1.0); CO2 28.2 mmol/L (21.0-32.0); CREATININE 1.13 mg/dL (0.55-1.02); Calcium 9.3 mg/dL (8.5-10.1); Chloride 105 mmol/L (98-107); Estimated GFR 47.33 (mL/min/1.73m2); Glucose 205 mg/dL (74-106); Potassium 4.1 mmol/L (3.5-5.1); Sodium 141 mmol/L (136-145); Total Protein 7.1 g/dL (6.4-8.2)
[2019-09-19 23:18] LABS: Lipase 92 U/L (73-393); Magnesium 1.9 mg/dL (1.8-2.4)
[2019-09-19] MEDS: Omnipaque 350 MG/ML 100 ML BTL IJ (23:18)
[2019-09-19] MEDS: Normal Saline - Diluent 50 ML VIAL IV (23:19)
--- NOTE | 2019-09-19 23:23 | DI.VRAD_ITS ---
PROCEDURE INFORMATION: Exam: CT Angiography Chest With Contrast Exam date and time: 09/19/2019 11:00 PM Age: 73 years old Clinical indication: Other: Radiating back pain, numbness; Prior surgery; Surgery date: 6+ months; Surgery type: Gallbladder, 2 c-sections; Patient HX: Back pain radiating TECHNIQUE: Imaging protocol: Computed tomographic angiography of the chest with intravenous contrast. 3D rendering: MIP and/or 3D reconstructed images were created by the technologist. Radiation optimization: All CT scans at this facility use at least one of these dose optimization techniques: automated exposure control; mA and/or kV adjustment per patient size (includes targeted exams where dose is matched to clinical indication); or iterative reconstruction. Contrast material: OMNIPAQUE 350; Contrast volume: 77 ml; Contrast route: IV LAC; COMPARISON: CR CHEST 2 VIEWS PA,LAT 03/11/2018 3:13 PM FINDINGS: Pulmonary arteries: Normal. No pulmonary emboli. Aorta: Unremarkable. No aortic aneurysm. No aortic dissection. Lungs: Right middle lobe nodular opacities measuring up to 7 mm. Pleural space: Unremarkable. No pneumothorax. No pleural effusion. Heart: Unremarkable. No cardiomegaly. No pericardial effusion. Mediastinum: Small hiatal hernia. Lymph nodes: Unremarkable. No enlarged lymph nodes. Bones/joints: Degenerative changes of the spine. Soft tissues: Unremarkable. IMPRESSION: 1. No acute finding. 2. Right middle lobe nodular opacities measuring up to 7 mm. As per Fleischner Society 2017 guidelines for follow-up and management of pulmonary nodules: For patients at low risk (minimal or absent history of smoking and of other known risk factors), recommend CT at 3-6 months, then consider CT at 18-24 months. For patient at high risk (history of smoking or of other known risk factors), recommend CT at 3-6 months, then CT at 18-24 months. PROCEDURE INFORMATION: Exam: CT Angiography Abdomen and Pelvis With Contrast Exam date and time: 09/19/2019 11:00 PM Age: 73 years old Clinical indication: Other: Radiating back pain, numbness; Prior surgery; Surgery date: 6+ months; Surgery type: Gallbladder, 2 c-sections; Patient HX: Back pain radiating TECHNIQUE: Imaging protocol: Computed tomographic angiography of the abdomen and pelvis with intravenous contrast material. 3D rendering: MIP and/or 3D reconstructed images were created by the technologist. Radiation optimization: All CT scans at this facility use at least one of these dose optimization techniques: automated exposure control; mA and/or kV adjustment per patient size (includes targeted exams where dose is matched to clinical indication); or iterative reconstruction. Contrast material: OMNIPAQUE 350; Contrast volume: 77 ml; Contrast route: IV LAC; COMPARISON: CR CHEST 2 VIEWS PA,LAT 03/11/2018 3:13 PM FINDINGS: Aorta: No aortic aneurysm. No aortic dissection. Celiac trunk and mesenteric arteries: No occlusion or significant stenosis. Renal arteries: No occlusion or significant stenosis. Right iliac arteries: No occlusion or significant stenosis. Left iliac arteries: No occlusion or significant stenosis. Liver: No mass. Gallbladder and bile ducts: Status post cholecystectomy. Pancreas: Unremarkable. No mass. No ductal dilation. Spleen: Unremarkable. No splenomegaly. Adrenals: Unremarkable. No mass. Kidneys and ureters: Unremarkable. No solid mass. No hydronephrosis. Stomach and bowel: Colonic diverticula. Appendix: No evidence of appendicitis. Intraperitoneal space: Unremarkable. No free air. No significant fluid collection. Lymph nodes: Unremarkable. No enlarged lymph nodes. Bladder: Unremarkable. No mass. Reproductive: Unremarkable as visualized. Bones/joints: No acute fracture. No dislocation. Lower lumbar predominant degenerative disk disease and facet arthropathy with neuroforaminal and canal stenosis. Soft tissues: Unremarkable. IMPRESSION: No acute findings. Dictated and Authenticated by: Blaine Cline MD. Ordering:MEE Valladares MD
[2019-09-19 23:46] LABS: Troponin I < 0.05 ng/Ml (<0.06)
[2019-09-19 23:49] LABS: Abs Immature Grans 0.01 k/cumm (0.0-0.09); Absolute Basophil Count 0.02 k/cumm (0.0-0.2); Absolute Neutrophil Count 3.38 k/cumm (1.2-6.7); Basophils % 0.5; Eosinophils % 2.3; HCT 36.2 % (36.0-46.0); HGB 12.6 g/dL (12.0-15.5); Immature Grans % 0.2 %; Lymphocytes % 13.6; Mean Corp. HGB Concentration 34.8 g/dL (32.0-36.0); Mean Corpuscular Volume 91.9 fL (80-95); Mean Platelet Volume 10.5 fL (8.0-11.0); Monocytes % 6.8; Neutrophils % 76.6; Platelet Count 148 x1000/uL (130-400); RBC 3.94 m/cumm (4.00-5.20); RBC Distribution Width 13.5 % (11.7-14.6); White Blood Cell Count 4.41 k/cumm (4.4-10.8)
[2019-09-20 00:05] VITALS: BP 158/60; PULSE 56; RESP 16; TEMP 36.9; O2SAT 98
[2019-09-20 00:06] VITALS: BP 158/60; PULSE 56; RESP 16; TEMP 36.9; O2SAT 98
== END 2019-09-20 00:05 | disposition home or self-care (01) ==
PROVIDERS: Emergency Provider Emergency Medicine; PCP Family Medicine
DX: M54.6 Pain in thoracic spine (principal); M54.5 Low back pain; R74.8 Abnormal levels of other serum enzymes; E04.1 Nontoxic single thyroid nodule; R93.3 Abnormal findings on diagnostic imaging of other parts of digestive tract; R91.1 Solitary pulmonary nodule; E11.9 Type 2 diabetes mellitus without complications; I10 Essential (primary) hypertension
CPT/HCPCS: 36415; 74177; 80053; 83690; 93005; 99285; 83735; 84484; 85025; 93010; 99284; J3490

== ENCOUNTER 2019-09-22 02:13 | Outpatient (CLI) | payer MEDICARE, SELFPAY ==
[2019-09-22 10:40] LABS: ALT 139 U/L (14-59); AST 56 U/L (15-37); Albumin 3.7 g/dL (3.4-5.0); Alkaline Phosphatase 145 U/L (46-116); Anion Gap 8.9 mmol/L (3-11); BUN 29 mg/dL (7-18); Bilirubin, Total 0.4 mg/dL (0.2-1.0); CO2 29.1 mmol/L (21.0-32.0); CREATININE 1.15 mg/dL (0.55-1.02); Calcium 9.3 mg/dL (8.5-10.1); Chloride 100 mmol/L (98-107); Estimated GFR 46.38 (mL/min/1.73m2); Glucose 220 mg/dL (74-106); Potassium 5.1 mmol/L (3.5-5.1); Sodium 138 mmol/L (136-145); Total Protein 6.9 g/dL (6.4-8.2)
[2019-09-22 12:23] LABS: ESR 34 mm/hr (0-30)
[2019-09-27 11:59] LABS: Albumin 57.5 % (55.8-66.1); Total Protein 6.6 g/dL (6.3-8.2)
== END 2019-09-22 02:33 ==
PROVIDERS: PCP Family Medicine; Visit Provider Family Medicine
DX: R94.5 Abnormal results of liver function studies (principal); M79.10 Myalgia, unspecified site; M54.5 Low back pain
CPT/HCPCS: 36415; 80053; 85652; 84165

== ENCOUNTER 2019-09-22 05:23 | Emergency (ER) | payer MEDICARE, SELFPAY ==
[2019-09-22 05:28] VITALS: BP 157/96; PULSE 96; RESP 20; TEMP 36.7; O2SAT 96
--- NOTE | 2019-09-22 05:30 | ED.GENADUL_ITS ---
Discharge Plan Disposition Patient Disposition: HOME Condition: Good Discharge Details Chief Complaint: Nk/Back Pain Clinical Impression: Low back pain Primary Care Provider: Helen Jimenez ED Provider: Israel Alegre [place] Meds and New Rx's Prescriptions: Continued allopurinol 300 mg tablet 150 mg PO DAILY RF: 0 furosemide [Lasix] 80 mg tablet 40 mg PO QAM RF: 0 lorazepam 1 mg tablet 1 mg PO DAILY PRN (Reason: clautrophobia) Qty: 2 RF: 0 prednisone 20 mg tablet See Rx Instructions PO DAILY Qty: 11 RF: 0 diazepam 2 mg tablet 2 mg PO TID PRN (Reason: muscle spasm) Qty: 15 RF: 0 omega-3 fatty acids 1,000 MG capsule 1,000 mg PO DAILY RF: 0 cholecalciferol (vitamin D3) 1,000 UNIT capsule 1,000 unit PO DAILY Qty: 180 RF: 4 multivitamin [Multi-Day] 1 EACH tablet 1 ea PO DAILY RF: 0 magnesium chloride [Mag 64] 64 MG tablet,delayed release (DR/EC) 64 mg PO DAILY Qty: 90 RF: 12 vitamin B complex [B-Complex] tablet 1 tab PO QWEEK RF: 0 levothyroxine 112 mcg capsule 112 mcg PO DAILY Qty: 90 RF: 3 spironolactone [Aldactone] 25 mg tablet 25 mg PO DAILY Qty: 180 RF: 4 rosuvastatin 5 mg tablet 5 mg PO DAILY Qty: 90 RF: 5 potassium chloride 20 mEq tablet,ER particles/crystals 20 meq PO DAILY Qty: 90 RF: 12 cyclobenzaprine 10 mg tablet 10 mg PO TID PRN (Reason: muscle spasm) Qty: 20 RF: 0 Discharge Instructions Additional Instructions: Please contact your primary care provider today as planned. You received 1 hydrocodone/acetaminophen tablet here as well as a lidocaine patch which seemed to help with your pain. Return to ED if you develop fever, neurologic changes, abdominal pain, bladder or bowel dysfunction, other concerns. Referrals: Helen Jimenez MD, [place] [Primary Care Provider] - Medical Decision Making Patient's pain at this point appears to be centered around the sacroiliac area. She is unable to sit or lie for periods of time because of increased pain. Feels best standing up and walking around. Has mild tenderness in this area. Has no neurologic symptoms or findings. Had CTA of chest/abdomen/pelvis just a few days ago with no acute findings. Incidental findings being evaluated by primary care who is also ordered some follow-up labs for her this morning. Patient was supposed to call primary care today if not better. Unfortunately, patient's pain continues despite prednisone and Valium. She is tearful and really did not sleep last night. I do not think she needs emergent imaging/MRI. She has outpatient labs ordered. There is no complaint of abdominal pain, chest pain or shortness of breath. I think attempting to manage her pain would be most helpful for her. As such we will place a Lidoderm patch and give 1 [place] tab. 06:40 -patient with significant relief from 1 Vicodin and Lidoderm patch. She is able to sit and is no longer pacing. Will discharge home. She will go and have her outpatient blood work done. She will contact primary care today for further management. Medical Records Medical records reviewed: Yes I reviewed the patient's medical records. HPI General Mode of arrival: ambulatory . Date/Time Provider Initiated Documentation: 09/22/19 05:25 . Limitations to Documentation: no limitations . Information obtained by: patient, RN notes reviewed and old records reviewed . HPI Narrative: Patient returns to ED with complaint of continued low back pain. She was seen here over the weekend for same. She had work-up including CTA of the chest abdomen pelvis which was negative for acute disease but did find a number of incidental findings. None of the incidental findings would explain her pain which was relatively sudden in onset after a short viral illness. She has seen her primary care physician and was put on prednisone and Valium. She is due for some blood work this morning. She cannot get comfortable and has not been able to sleep, sit or lie down. She is most comfortable standing up walking around. Pain is mostly in the sacroiliac area with radiation into the buttocks and around to the anterior thigh. She has no weakness, numbness, bladder or bowel dysfunction. She has no abdominal pain. She has no chest pain or shortness of breath. There is been no fever. There is no rash. There was no trauma. Related Data Home Medications Medication Instructions Recorded Confirmed cholecalciferol (vitamin D3) 1,000 unit PO DAILY #180 01/27/13 09/22/19 omega-3 fatty acids 1,000 mg PO DAILY 01/27/13 09/22/19 multivitamin [Multi-Day] 1 ea PO DAILY 10/07/16 09/22/19 magnesium chloride [Mag 64] 64 mg PO DAILY #90 tab-cap 11/24/17 09/22/19 vitamin B complex 1 tab PO QWEEK tab 10/20/18 09/22/19 levothyroxine 112 mcg capsule 112 mcg PO DAILY #90 cap 02/21/19 09/22/19 spironolactone 25 mg tablet 25 mg PO DAILY #180 tab-cap 02/23/19 09/22/19 potassium chloride 20 mEq 20 meq PO DAILY #90 tab-cap 06/18/19 09/22/19 tablet,extended release(part/cryst) rosuvastatin 5 mg tablet 5 mg PO DAILY #90 tab 06/18/19 09/22/19 allopurinol 300 mg tablet 150 mg PO DAILY tab-cap 06/28/19 09/22/19 furosemide 80 mg tablet 40 mg PO QAM tab-cap 06/28/19 09/22/19 cyclobenzaprine 10 mg PO TID PRN #20 tab 09/19/19 09/22/19 diazepam 2 mg tablet 2 mg PO TID PRN #15 tab 09/20/19 09/22/19 lorazepam 1 mg tablet 1 mg PO DAILY PRN #2 tab 09/20/19 09/22/19 prednisone 20 mg tablet See Rx Instructions PO DAILY #11 09/20/19 09/22/19 tab Previous Rx's Medication Instructions Recorded magnesium chloride [Mag 64] 64 mg PO DAILY #90 tab-cap 11/24/17 levothyroxine 112 mcg capsule 112 mcg PO DAILY #90 cap 02/21/19 spironolactone 25 mg tablet 25 mg PO DAILY #180 tab-cap 02/23/19 potassium chloride 20 mEq 20 meq PO DAILY #90 tab-cap 06/18/19 tablet,extended release(part/cryst) rosuvastatin 5 mg tablet 5 mg PO DAILY #90 tab 06/18/19 cyclobenzaprine 10 mg PO TID PRN #20 tab 09/19/19 diazepam 2 mg tablet 2 mg PO TID PRN #15 tab 09/20/19 lorazepam 1 mg tablet 1 mg PO DAILY PRN #2 tab 09/20/19 prednisone 20 mg tablet See Rx Instructions PO DAILY #11 09/20/19 tab Allergies Allergy/AdvReac Type Severity Reaction Status Date / Time Penicillins Allergy Severe HIVES Verified 09/22/19 05:34 celery Allergy Intermediate SNEEZING Verified 09/22/19 05:34 AND RASH latex Allergy Intermediate RASH Verified 09/22/19 05:34 niacin Allergy Intermediate HIVES Verified 09/22/19 05:34 atorvastatin AdvReac Intermediate VOMITING/DI Verified 09/22/19 05:34 ZZINESS gabapentin AdvReac Intermediate Other (See Verified 09/22/19 05:34 Comment) gemfibrozil AdvReac Intermediate Verified 09/22/19 05:34 nifedipine AdvReac Intermediate cough Verified 09/22/19 05:34 rofecoxib AdvReac Intermediate stomach Verified 09/22/19 05:34 upset General VICK: 3 Review of Systems Narrative: As documented in HPI otherwise negative as below. Const: no fever, chills, weakness Resp: no cough, SOB, pleuritic pain CV: no CP, diaphoresis, edema, syncope GI: no abdominal pain, nausea, vomiting, diarrhea Neuro: no headache, numbness, focal weakness, confusion [facility] Medical History Cardiomegaly (Chronic 06/26/01) w/ echo in 2001; concentric LVH w/ EF 68%; echo 2005-systolic murmur; LVH, Mild LAE; diastolic dysfunction; EF-70%; bilateral enlargement Cardiomyopathy (Chronic 01/13/17) By MPI 01/11 Complete tear of rotator cuff (Chronic 12/03/16) Diabetes mellitus (Chronic 10/01/16) Essential hypertension (Chronic 08/03/13) labile hypertension w/ neg. metanephrines and catecholamines Generalized osteoarthrosis (Chronic) DJD LS spine; CT showed mild DJD; also left hip showed mild DJD Gout (Chronic) Hemorrhoids (Chronic) Hiatal hernia (Chronic) per upper GI Hyperlipidemia (Chronic) high triglycerides, decreased HDL Hypothyroidism (Chronic 04/12/13) thyroid nodule on CT,? uptake decreased in lobe; U/S=multiple nodulars, consistent w/ uptake Increased BMI (Chronic) Low back pain (Chronic 06/26/06) T-pain; DISH by xray; Retinal detachment (Chronic 10/20/08) Seizure (Resolved) Sleep apnea (Chronic) Tachycardia-bradycardia (Chronic 11/24/17) PAC,SYMPTOMATIC Traumatic injury of head (Chronic 07/06/15) Vertigo (Chronic) Surgical History Arthroplasty of knee (~2009) LEFT BONE SPUR SPUR AND CYST REMOVAL Colonoscopy - MAC 08/08/14 HAND (08/06/11) RIGHT THUMB BONE REMOVED History of section (Inactive) NECK CYSTECTOMY PROCEDURES OTHER SOFT TISSUE EXCIS, 02/26 Excision of Lipoma right neck Rotator Cuff Repair 04/07/17 DR. ROBBINS (L) Status post cholecystectomy (Inactive) Family History (Updated 06/28/19 @ 15:16 by Artur Dove) Mother Diabetes Essential hypertension Heart disease PACEMAKER Hyperlipidemia Depression Father , age 81 Diabetes Essential hypertension History of amputation of lower extremity SEPTICEMIA Heart disease Hypercholesterolemia Hyperlipidemia Alcohol abuse Sister Essential hypertension Sister Diabetes Essential hypertension Hyperlipidemia Brother , MVA at age 20. No problems noted. Maternal Grandfather , age 72 Heart disease Paternal Grandfather , PNEUMONIA at age 80. Heart disease Maternal Grandmother , age 58 Heart disease Paternal Grandmother , age 42 Diabetes Heart disease Son No problems noted. 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 [employer] Pets and animals: No Sexually active: Yes Do you think of yourself as: straight/heterosexual Current gender identity: female What is your relationship status?: How often do you talk on the phone with friends or family?: three or more times per week How often do you get together with friends or relatives?: three or more times per week How often do you attend yazidi or rastafarian services?: 4 or more times per year Do you belong to any clubs or organized social groups?: yes Panel score (0-1 are the most socially isolated patients): 4 What type of physical activity do you participate in: walking and other Details: Ellipitcal, stationary bike, stairs Duration: 15-30 minutes/day Frequency: 3-4 times per week Michelle/Spiritism: Uatsdin Special michelle needs: No Seatbelt use: always Helmet use: Yes Helmet use: always Drive intox or ride w/intox local [place] truck driver: No Do you feel safe at home: Yes Do you feel safe in your relationship?: Yes Exam Narrative Exam Narrative: Vitals: Afebrile. Slightly elevated blood pressure and heart rate likely due to pain. Normal room air pulse oximetry. Const: Obese elderly female pacing the room, tearful due to back pain. HEENT: NC/AT. Normal facial exam. Eyes: Normal conjunctiva and sclera. Neck: Supple. Trachea midline. Lungs: Normal respiratory effort. Back: No mid-line spinal tenderness elicited. Mild paraspinal tenderness noted in the lumbar area. Mild tenderness in the SI area. Fairly good ROM without significant pain. Neuro: A+O x 3. Normal speech, mentation, gait. Cranial nerves II - XII grossly intact. 5/5 strength. Sensory in tact. Patella and Achilles reflex normal and symmetric. Ext: No C/C/E. Skin: Warm and dry without rash.
[2019-09-22] MEDS: Lidocaine 5% Patch 1 PATCH TP (05:54)
[2019-09-22] MEDS: HYDROcodone 5/Acetaminophen 325 TAB PO (05:54)
[2019-09-22 06:46] VITALS: PULSE 90; RESP 20; TEMP 36.7; O2SAT 96
== END 2019-09-22 06:46 | disposition home or self-care (01) ==
PROVIDERS: Emergency Provider Emergency Medicine; PCP Family Medicine
DX: M54.5 Low back pain (principal); E11.9 Type 2 diabetes mellitus without complications; I10 Essential (primary) hypertension
CPT/HCPCS: 36415; 80053; 85652; 99283; 84165

== ENCOUNTER 2019-09-23 02:44 | Outpatient (CLI) | payer MEDICARE, SELFPAY ==
--- NOTE | 2019-09-23 11:43 | DI.RAD_ITS ---
EXAM: XR LUMBAR SPINE COMPLETE INDICATION: LBP - tailbone, M54.5, R52. COMPARISON: No exams were available for comparison TECHNIQUE: 2D digital imaging was performed. FINDINGS: No compression fractures are seen. There are prominent endplate osteophytes projecting mainly later ally at L 1 2 and L2-3. Small endplate osteophytes are seen at the remaining levels. There are face t degenerative changes greatest at L4-5 and L5-S1. There is mild degenerative spondylolisthesis at L 4-5 and mild L4-5 disc space narrowing. The aorta shows some calcification but is normal in diameter . Surgical clips are noted in the right upper quadrant and pelvis. There are mild SI joint degenera tive changes. IMPRESSION: Degenerative changes greatest at L4-5. DATA REPOSITORY: RADIATION DOSE DELIVERED:
--- NOTE | 2019-09-23 11:45 | DI.RAD_ITS ---
EXAM: XR THORACIC SPINE COMPLETE INDICATION: thoracic and LBP, R52, M54.5. COMPARISON: No exams were available for comparison TECHNIQUE: 2D digital imaging was performed. FINDINGS: There is no evidence of compression fracture or scoliosis. There are flowing osteophytes throughout . IMPRESSION: Degenerative changes. No acute abnormality. DATA REPOSITORY: RADIATION DOSE DELIVERED:
--- NOTE | 2019-09-23 12:34 | DI.US_ITS ---
EXAM: US THYROID CLINICAL HISTORY: Thyroid cyst, see CT Scan, E04.1-nontoxic single thyroid nodule TECHNIQUE: Ultrasound performed using standard protocol. COMPARISON: CT THORAX ABD/PEL CTA from 09/19/2019 FINDINGS: The right lobe measures 3.5 x 1.4 x 1.3 cm. There is an incidental 7 millimeter, circumscribed, iso echoic nodule near the upper pole. The left lobe measures 4.1 x 1.4 x 1.4 cm. There is a circumscri bed, mainly isoechoic nodule with a few small cystic areas. There are no echogenic foci. IMPRESSION: TI-RADS category 2. No suspicious features are seen in the 1.9 centimeter thyroid nodule. DATA REPOSITORY:
== END 2019-09-23 03:04 ==
PROVIDERS: PCP Family Medicine; Visit Provider Family Medicine
DX: M54.5 Low back pain (principal); M54.6 Pain in thoracic spine; M47.815 Spondylosis without myelopathy or radiculopathy, thoracolumbar region; E04.1 Nontoxic single thyroid nodule; M43.17 Spondylolisthesis, lumbosacral region
CPT/HCPCS: 72072; 72110; 76536

== ENCOUNTER 2019-09-29 01:26 | Outpatient (CLI) | payer MEDICARE, SELFPAY ==
--- NOTE | 2019-09-29 09:10 | DI.MRI_ITS ---
EXAM: MR ABDOMEN WO/W CLINICAL HISTORY: abnl CT Scan, cystic changes of pancreas,I10. ESSENTIAL PRIMARY HYPERTENSION TECHNIQUE: Multiplanar multisequence MRA of the Abdomen was performed. COMPARISON: CT THORAX ABD/PEL CTA from 09/19/2019 FINDINGS: The pancreas is normal in size. There are multiple unilocular simple cysts distributed throughout th e pancreas. Cysts are seen within the head, body and tail of the pancreas. The largest is seen in t he head of the pancreas. It measures 9 mm in diameter. Following contrast administration, no enhanc ing of the lesions is seen. No solid component is seen in the cysts. No solid pancreatic mass or en hancing mass is identified in the pancreas. There is no pancreatic ductal dilatation. Liver is normal in size. There is a cyst seen in the inferior aspect of the right lobe of the liver. The kidneys are unremarkable except for bilateral renal cysts. No solid renal mass is present. The spleen and adrenal glands are unremarkable. No abdominal ascites or adenopathy is present. The abdominal aorta is of normal caliber. IMPRESSION: Multiple unilocular nonenhancing simple cysts distributed throughout the pancreas. No multi-cystic o r solid pancreatic mass is seen. The findings are suggestive of benign disease. Multiple cysts can be seen following prior episodes of pancreatitis in addition to other benign causes. A follow-up CT scan or MRI may be obtained in 6 months to document stability. DATA REPOSITORY:
== END 2019-09-29 01:46 ==
PROVIDERS: PCP Family Medicine; Visit Provider Family Medicine
DX: K86.2 Cyst of pancreas (principal); K76.89 Other specified diseases of liver; N28.1 Cyst of kidney, acquired
CPT/HCPCS: 74183

== ENCOUNTER 2020-01-11 01:03 | Outpatient (CLI) | payer MEDICARE, SELFPAY ==
[2020-01-11 12:37] LABS: Hemoglobin A1C 6.7 % (3.8-5.6)
[2020-01-11 13:37] LABS: COMMENT (LAB VIEW ONLY) 254.61 mg/dL; Microalb ug/mg Crea 6.1 ug/mg Cr
[2020-01-11 14:03] LABS: ALT 34 U/L (14-59); AST 25 U/L (15-37); Albumin 4.1 g/dL (3.4-5.0); Alkaline Phosphatase 98 U/L (46-116); Anion Gap 9.3 mmol/L (3-11); BUN 25 mg/dL (7-18); Bilirubin, Total 0.9 mg/dL (0.2-1.0); CO2 27.7 mmol/L (21.0-32.0); CREATININE 1.05 mg/dL (0.55-1.02); Chloride 106 mmol/L (98-107); Estimated GFR 51.37 (mL/min/1.73m2); Glucose 116 mg/dL (74-106); Potassium 4.1 mmol/L (3.5-5.1); Sodium 143 mmol/L (136-145); Total Protein 6.9 g/dL (6.4-8.2); Vitamin B12 688 pg/mL (193-986)
== END 2020-01-11 01:23 ==
PROVIDERS: PCP Family Medicine; Visit Provider Family Medicine
DX: E11.9 Type 2 diabetes mellitus without complications (principal); M79.2 Neuralgia and neuritis, unspecified
CPT/HCPCS: 36415; 80053; 82043; 82570; 82607; 83036

== ENCOUNTER 2020-02-08 01:43 | Outpatient (CLI) | payer MEDICARE, SELFPAY ==
--- NOTE | 2020-02-08 07:45 | DI.DEXA_ITS ---
EXAM: XR DEXA BONE DENSITY W/WO [place] CLINICAL HISTORY: osteoporosis,m81.0 TECHNIQUE: COMPARISON: CR XR LUMBAR SPINE COMPLETE from 09/23/2019 FINDINGS: DEXA scan was performed according to the usual protocol. Please see the accompanying data sheets. F indings for left hip scanning are T-score -0.4 with left femoral neck T-score -0.5. Lumbar spine scanning shows T-score 0.4. Left forearm scanning shows T-score -0.7. IMPRESSION: Findings consistent with normal bone density according to the WHO criteria. The lateral vertebral sc anogram shows no evidence of a vertebral compression fracture.
== END 2020-02-08 02:03 ==
PROVIDERS: PCP Family Medicine; Visit Provider Family Medicine
DX: M81.0 Age-related osteoporosis without current pathological fracture (principal); M85.80 Other specified disorders of bone density and structure, unspecified site
CPT/HCPCS: 77080

== ENCOUNTER 2020-03-21 00:57 | Outpatient (CLI) | payer MEDICARE, SELFPAY ==
--- NOTE | 2020-03-21 08:12 | DI.CT_ITS ---
EXAM: CT CHEST WO CLINICAL HISTORY: f/u lung nodule,r91.1 TECHNIQUE: COMPARISON: CT CT THORAX ABD/PEL CTA from 09/19/2019 FINDINGS: CT examination of the chest was contrast administration. Images obtained through the upper abdomen show unremarkable appearance of visualized portions of the liver, spleen, pancreas, adrenals, kidneys, prior cholecystectomy noted. No mediastinal or hilar adenopathy. Coronary artery calcification noted. Previous CT of 09/19/2019 showed a 4 x 7 millimeter in diameter right middle lobe intrapulmonary nodu le which is noncalcified. This is unchanged today's examination. A tiny noncalcified right lower lo be intrapulmonary nodule is also seen. No additional new nodule identified. No pleural effusion. N o consolidation. Tracheobronchial tree appears intact. IMPRESSION: Stable 5-6 millimeter mean diameter right middle lobe intrapulmonary nodule since August of this ye ar. An additional 12 month follow-up CT is recommended. RADIATION DOSE DELIVERED: 677.84mGy.cm Total DLP
== END 2020-03-21 01:17 ==
PROVIDERS: PCP Family Medicine; Visit Provider Family Medicine
DX: R91.1 Solitary pulmonary nodule (principal)
CPT/HCPCS: 71250

== ENCOUNTER 2020-06-29 01:26 | Outpatient (CLI) | payer MEDICARE, SELFPAY ==
--- NOTE | 2020-06-29 | DI.US_ITS ---
EXAM: US THYROID CLINICAL HISTORY: MULTI NODULAR THYROID GOITER,E04.2. TECHNIQUE: Ultrasound thyroid performed using standard protocol. COMPARISON: US US THYROID from 09/23/2019 US US THYROID from 09/23/2019 FINDINGS: Right thyroid lobe measures 1.5 centimeters AP x 1.2 centimeters wide by 4 centimetres cephalocaudal. The right thyroid lobe again contains a solitary nodule measuring 6 x 4 x 4 millimeters which is un changed in size and is again noted to be hyperemic. It is relatively isoechoic to the surrounding pa renchyma. Not taller than wider and exhibits smooth margins and no echogenic foci therein. Total po ints = 3 (TIRADS 3) The isthmus is 2 millimeters thick and does not contain nodules. The left thyroid lobe measures 1.6 centimeters AP x 1.1 centimetres wide by 4 centimetres cephalocaud al. It is again noted to contain a nodule measuring approximately 1.9 x 0.5 x 1.0 centimetres, not i ncreased in size from the prior study. This nodule appears spongiform, mildly hyperechoic relative t o the surrounding parenchyma and is not taller than wider. Margins are slightly ill-defined. Does n ot contain echogenic foci. Total points =1 (TIRADS 1) IMPRESSION: Findings in both thyroid lobes as above but exhibiting minimal if any significant change when compare d to the prior ultrasound examination of August 2019. DATA REPOSITORY:
== END 2020-06-29 01:46 ==
PROVIDERS: PCP Family Medicine; Visit Provider Otolaryngology
DX: E04.2 Nontoxic multinodular goiter (principal)
CPT/HCPCS: 76536

== ENCOUNTER 2020-10-24 03:37 | Outpatient (CLI) | payer MEDICARE, SELFPAY ==
[2020-10-24 13:01] LABS: ALT 40 U/L (14-59); AST 20 U/L (15-37); Albumin 3.8 g/dL (3.4-5.0); Alkaline Phosphatase 111 U/L (46-116); Anion Gap 9.4 mmol/L (3-11); BUN 25 mg/dL (7-18); Bilirubin, Total 0.5 mg/dL (0.2-1.0); CO2 29.6 mmol/L (21.0-32.0); Calcium 9.2 mg/dL (8.5-10.1); Calculated LDL 107 mg/dL (<100); Chloride 106 mmol/L (98-107); Cholesterol 178 mg/dL (<200); Glucose 118 mg/dL (74-106); HDL Cholesterol 38 mg/dL (40-60); Potassium 4.2 mmol/L (3.5-5.1); Sodium 145 mmol/L (136-145); TSH (W/Ref FT4) 2.94 uIU/mL (0.36-3.74); Total Protein 7.1 g/dL (6.4-8.2); Triglyceride 169 mg/dL (<150)
[2020-10-24 13:26] LABS: Uric Acid 5.6 mg/dL (2.6-6.0)
[2020-10-24 13:54] LABS: COMMENT (LAB VIEW ONLY) 198.73 mg/dL; Microalb ug/mg Crea 19.5 ug/mg Cr
== END 2020-10-24 03:38 | disposition home or self-care (01) ==
LOC: LOS 03:37
PROVIDERS: PCP Family Medicine; Visit Provider Family Medicine
DX: I10 Essential (primary) hypertension (principal); E11.9 Type 2 diabetes mellitus without complications; E03.9 Hypothyroidism, unspecified; E04.2 Nontoxic multinodular goiter; M10.9 Gout, unspecified
CPT/HCPCS: 36415; 80053; 80061; 82043; 82570; 83036; 84443; 84550

== ENCOUNTER 2020-11-09 02:31 | Outpatient (CLI) | payer MEDICARE, SELFPAY ==
--- NOTE | 2020-11-09 08:30 | DI.MRI_ITS ---
EXAM: MR BRAIN WO CLINICAL HISTORY: visual hallucinations, vision changes, h53.9,r44.1 TECHNIQUE: Multiplanar multisequence MRI of the brain was performed. COMPARISON: CT CT HEAD WO from 12/05/2018 FINDINGS: CEREBRAL PARENCHYMA: There is no evidence of intracranial hemorrhage, mass effect, or shift of midline structures. There are no extra-axial fluid collections. Ventricles are not enlarged or shifted. There is no significant focal signal abnormality in the cerebellar hemispheres nor within the saira, m idbrain, and thalami. There is mild periventricular signal abnormality. There is a small nonspecific 3 millimeter focus of signal abnormality in the left periventricular white matter. There is no significant focal signal abnormality evident on diffusion imaging to suggest acute ischem ic event. PITUITARY GLAND: No mass nor parasellar abnormality. No obvious abnormality in the cavernous sinuses. FLOW VOIDS: The expected flow void are noted. No evidence of obvious aneurysm nor obvious vascular ma lformation. PARANASAL SINUSES: The visualized paranasal sinuses appear unremarkable. No obvious finding ORBITS: No obvious findings. IMPRESSION: No significant intracranial findings on this noninfused MRI scan of the brain. DATA REPOSITORY:
== END 2020-11-09 02:51 ==
PROVIDERS: PCP Family Medicine; Visit Provider Family Medicine
DX: R44.1 Visual hallucinations (principal); H53.8 Other visual disturbances
CPT/HCPCS: 70551

== ENCOUNTER 2021-02-14 02:30 | Outpatient (CLI) | payer MEDICARE, SELFPAY ==
--- NOTE | 2021-02-14 08:09 | DI.RAD_ITS ---
Exam(s) XR HIP PELVIS ADULT BL EXAM: XR HIP PELVIS ADULT BL CLINICAL HISTORY: bilat hip pain, m25.551, m25.552. TECHNIQUE: 2D digital imaging was performed. COMPARISON: No exams were available for comparison FINDINGS: There are no pelvic or hip fractures. No hip joint space narrowing. However, on the lateral view of the right hip there is some calcifications seen adjacent to outer aspect of the greater trochanter, this calcification measuring approximately 4 cm length by 0.5 cm with. Smaller for finding similar l ocation on the left hip. No osseous lesions. Bone density appears normal. Sacroiliac joints appear unremarkable. IMPRESSION: DATA REPOSITORY: RADIATION DOSE DELIVERED:
--- NOTE | 2021-02-14 08:09 | DI.RAD_ITS ---
Exam(s) XR LUMBAR SPINE COMPLETE EXAM: XR LUMBAR SPINE COMPLETE CLINICAL HISTORY: low back pain, m54.9. TECHNIQUE: 2D digital imaging was performed. COMPARISON: CR XR LUMBAR SPINE COMPLETE from 09/23/2019 CR XR DEXA BONE DENSITY W/WO [place]TON from 02/08/2020 FINDINGS: There is no evidence of compression fracture. Again noted is mild degenerative anterolisthesis L4 up on L5 related to facet arthropathy. Mild disc space narrowing again noted this level. Advanced disc space narrowing at L5 S1 again noted. Mild disc space narrowing also noted at L3-4 level. Left-sided bridging osteophytes at L1-2 level no piotr. Right-sided osteophytes at L2-3 and left-sided osteophytes at L3-4 level. There is no scoliosi s. No osseous lesions. Sacroiliac joints appear age-appropriate. No ominous osseous lesions eviden t. Incidentally noted is a an oval density measuring 1.4 x 1.0 centimetres in the soft tissues on the ri ght side. There are surgical clips in the right upper quadrant and therefore I assume that the gallb ladder surgically absent and that this is not a gallstone. Perhaps undigested pill in the distal sto mach. IMPRESSION: DATA REPOSITORY: RADIATION DOSE DELIVERED:
== END 2021-02-14 02:50 ==
PROVIDERS: PCP Family Medicine; Visit Provider Family Medicine
DX: M54.5 Low back pain; M25.551 Pain in right hip; M25.552 Pain in left hip
CPT/HCPCS: 73521; 72110

== ENCOUNTER 2021-03-14 01:21 | Outpatient (CLI) | payer MEDICARE, SELFPAY ==
--- NOTE | 2021-03-14 08:00 | DI.MRI_ITS ---
Exam(s) MR LUMBAR SPINE WO EXAM: MR LUMBAR SPINE WO CLINICAL HISTORY: spinal stenosis/ ? DISH on previous studies,DECREASED REFLEX LT L4,WADDLING. TECHNIQUE: Multiplanar multisequence MRI of the Lumbar spine was performed. COMPARISON: CR XR LUMBAR SPINE COMPLETE from 02/14/2021 CR XR LUMBAR SPINE COMPLETE from 02/14/2021 FINDINGS: Conus medullaris is located slightly lower than typical, in this case at the upper L2 level.. There is no evidence of conus mass nor subjacent clumping of intrathecal nerve roots to suggest arachnoidit is. There is no evidence of thickened nor lipomatous filum terminale nor evidence of cord tethering. The distal thecal sac is at the upper S3 level, slightly lower than typical but otherwise appears u nremarkable.There is no evidence of Tarlov intrasacral cysts nor other significant findings within th e sacral canal Bones:There are no fractures nor ominous osseous lesions in the lumbar vertebral bodies and visualize d sacrum. With respect to the individual levels... T12-L1: Unremarkable L1-2: Normal disc height and signal. No disc herniation nor central canal stenosis.No foraminal steno sis L2-3: There is some disc space height loss at this level, however, no disc herniation nor central can al stenosis.No prominent foraminal stenosis.No facet arthropathy. L3-4: Mild disc height loss . relatively symmetrical annular bulging. Central canal dimensions are l ower normal. No large focal disc herniation. No prominent foraminal stenosis. No prominent facet a rthropathy. L4-5: Mild disc height loss. There is 3 millimeters anterior listhesis of L4 upon L5 due to degenera tive facet joint changes at this level. There are no pars defects. Central canal dimensions are low er normal. No prominent foraminal stenosis. No ligamentum flavum hypertrophy. L5-S1: This level exhibits moderate-advanced disc space height loss. Bulging annulus with superimpos ed central subligamentous disc bulge which slightly indents the anterior thecal sac but there is no t rue central spinal canal stenosis at this level. Foraminal of the RC there is mild bilateral foramin al stenosis at this level due to the disc height loss. This is slightly more prominent on the right side than the left. Mild degenerative changes in the right facet joint. No obvious degenerative sonya nges in the left facet joint Soft tissues: paraspinal soft tissues appear unremarkable.Few small sub cortical cysts are noted in both kidneys. IMPRESSION: 1. Mild multilevel findings. No dominant disc herniation nor prominent central canal stenosis. Ther e is mild degenerative anterolisthesis of L4 upon L5, this related to degenerative facet arthropathy (there are no pars defects). 2. Mild foraminal stenosis at L5-S1 level related to disc height loss, this narrowing being slightly more so on the right than the left side. 3. Slightly lower than typical location of the conus medullaris. However, there is no evidence of co nus mass, spinal cord tethering, nor the thickening/fatty infiltration of the filum terminale. No ev idence of mass nor lipoma within the spinal canal. DATA REPOSITORY:
== END 2021-03-14 01:41 ==
PROVIDERS: PCP Family Medicine; Visit Provider Family Medicine
DX: M48.07 Spinal stenosis, lumbosacral region (principal); M47.817 Spondylosis without myelopathy or radiculopathy, lumbosacral region; M25.551 Pain in right hip; M25.552 Pain in left hip
CPT/HCPCS: 72148

== ENCOUNTER → 2021-05-08 10:07 | Outpatient (BNVA) | payer MEDICARE, SELFPAY | PROVIDERS: PCP Family Medicine; Referring Provider Family Medicine; Visit Provider Psychiatry & Neurology Neurology | DX: M54.59 Other low back pain (principal); E11.42 Type 2 diabetes mellitus with diabetic polyneuropathy; R26.89 Other abnormalities of gait and mobility; I10 Essential (primary) hypertension | CPT/HCPCS: 99215 ==

== ENCOUNTER → 2021-06-07 08:45 | Outpatient (BNVA) | payer MEDICARE, SELFPAY | PROVIDERS: PCP Family Medicine; Referring Provider Family Medicine; Visit Provider Psychiatry & Neurology Neurology | DX: R26.89 Other abnormalities of gait and mobility (principal); R20.2 Paresthesia of skin; E11.42 Type 2 diabetes mellitus with diabetic polyneuropathy; M54.10 Radiculopathy, site unspecified; K59.00 Constipation, unspecified | CPT/HCPCS: 95885; 95909; 99213 ==

== ENCOUNTER 2021-08-03 03:58 | Outpatient (CLI) | payer MEDICARE, SELFPAY ==
[2021-08-03 10:35] LABS: ALT 33 U/L (14-59); AST 20 U/L (15-37); Alkaline Phosphatase 107 U/L (46-116); Anion Gap 9.2 mmol/L (3-11); BUN 27 mg/dL (7-18); Bilirubin, Total 0.6 mg/dL (0.2-1.0); CO2 27.8 mmol/L (21.0-32.0); Calcium 9.2 mg/dL (8.5-10.1); Chloride 104 mmol/L (98-107); Glucose 142 mg/dL (74-106); Potassium 4.6 mmol/L (3.5-5.1); Sodium 141 mmol/L (136-145); TSH (W/Ref FT4) 6.01 uIU/mL (0.36-3.74); Uric Acid 5.2 mg/dL (2.6-6.0)
[2021-08-03 10:53] LABS: FREE T4 0.89 ng/dL (0.76-1.46)
[2021-08-03 11:05] LABS: Calculated LDL 122 mg/dL (<100); Cholesterol 225 mg/dL (<200); HDL Cholesterol 36 mg/dL (40-60); Triglyceride 336 mg/dL (<150)
== END 2021-08-03 03:59 | disposition home or self-care (01) ==
LOC: LBO 03:59
PROVIDERS: PCP Family Medicine; Visit Provider Family Medicine
DX: E03.9 Hypothyroidism, unspecified (principal); E11.9 Type 2 diabetes mellitus without complications; E78.5 Hyperlipidemia, unspecified; I10 Essential (primary) hypertension; M10.9 Gout, unspecified; I51.7 Cardiomegaly
CPT/HCPCS: 36415; 80053; 80061; 83036; 84439; 84443; 84550

== ENCOUNTER → 2021-08-07 09:51 | Outpatient (BNVA) | payer MEDICARE, SELFPAY | PROVIDERS: PCP Family Medicine; Referring Provider Family Medicine; Visit Provider Psychiatry & Neurology Neurology | DX: M54.16 Radiculopathy, lumbar region (principal); E11.42 Type 2 diabetes mellitus with diabetic polyneuropathy; R26.89 Other abnormalities of gait and mobility; K59.00 Constipation, unspecified; I10 Essential (primary) hypertension | CPT/HCPCS: 99213 ==

== ENCOUNTER 2021-10-09 00:48 | Outpatient (CLI) | payer MEDICARE, SELFPAY ==
--- NOTE | 2021-10-09 06:30 | DI.MAMMO_ITS ---
Exam(s) MAMMO SCREENING EXAM: MAMMO SCREENING CLINICAL HISTORY: screening,z12.39 TECHNIQUE: Mammograms were interpreted according to the usual protocol including computer analysis w [employer] CAD system, tomosynthesis and C-view imaging. COMPARISON: 2012 through 2018 FINDINGS: The breasts are composed of scattered fibroglandular densities, Breast Density category B. No suspicious masses or suspicious microcalcifications are seen. No skin thickening or abnormal axillary lymph nodes are seen. There has been no significant change from prior exams. IMPRESSION: BI-RADS Category 1, Negative mammogram Yearly screening mammography is recommended. Breast Density - Category B, scattered fibroglandular densities. A negative radiographic report should not delay biopsy if a dominant or clinically suspicious mass is present. Up to ten percent of cancers are not identified on mammography. A negative report may reinforce clinical impression. Adenosis and dense breasts may obscure an underlying neoplasm. False positive reports average 6 to 10%. Patient will receive a letter notifying them of these results.
== END 2021-10-09 01:08 ==
PROVIDERS: PCP Family Medicine; Visit Provider Family Medicine
DX: Z12.31 Encounter for screening mammogram for malignant neoplasm of breast (principal)
CPT/HCPCS: 77063; 77067

== ENCOUNTER 2021-12-07 01:31 | Outpatient (CLI) | payer MEDICARE, SELFPAY ==
[2021-12-07 12:54] LABS: Hemoglobin A1C 7.1 % (<5.7)
[2021-12-07 12:56] LABS: TSH (W/Ref FT4) 6.28 uIU/mL (0.36-3.74)
[2021-12-07 13:21] LABS: FREE T4 0.82 ng/dL (0.76-1.46)
== END 2021-12-07 01:32 | disposition home or self-care (01) ==
LOC: LOS 01:32
PROVIDERS: PCP Family Medicine; Visit Provider Family Medicine
DX: E03.9 Hypothyroidism, unspecified (principal); E11.9 Type 2 diabetes mellitus without complications
CPT/HCPCS: 36415; 83036; 84439; 84443

== ENCOUNTER 2022-04-15 03:33 | Outpatient (CLI) | payer MEDICARE, SELFPAY ==
[2022-04-15 12:31] LABS: ALT 43 U/L (14-59); AST 22 U/L (15-37); Albumin 3.6 g/dL (3.4-5.0); Alkaline Phosphatase 111 U/L (46-116); Anion Gap 9.5 mmol/L (3-11); BUN 20 mg/dL (7-18); Bilirubin, Total 0.5 mg/dL (0.2-1.0); CO2 27.5 mmol/L (21.0-32.0); Calcium 9.3 mg/dL (8.5-10.1); Calculated LDL 75 mg/dL (<100); Chloride 107 mmol/L (98-107); Cholesterol 177 mg/dL (<200); Estimated GFR 58.75 (mL/min/1.73m2); Glucose 169 mg/dL (74-106); HDL Cholesterol 32 mg/dL (40-60); Sodium 144 mmol/L (136-145); TSH (W/Ref FT4) 1.06 uIU/mL (0.36-3.74); Total Protein 7.3 g/dL (6.4-8.2); Triglyceride 352 mg/dL (<150)
[2022-04-15 12:53] LABS: Hemoglobin A1C 7.9 % (<5.7)
== END 2022-04-15 03:34 | disposition home or self-care (01) ==
LOC: LOS 03:33
PROVIDERS: PCP Family Medicine; Visit Provider Family Medicine
DX: E03.9 Hypothyroidism, unspecified (principal); I10 Essential (primary) hypertension; E11.9 Type 2 diabetes mellitus without complications
CPT/HCPCS: 36415; 80053; 80061; 83036; 84443

== ENCOUNTER 2022-08-27 17:21 | Outpatient (REF) | payer MEDICARE, SELFPAY ==
[2022-08-27 18:20] LABS: COMMENT (LAB VIEW ONLY) 43.78 mg/dL; Microalb ug/mg Crea 62.8 ug/mg Cr
== END 2022-08-27 17:22 | disposition home or self-care (01) ==
LOC: LBN 17:21
PROVIDERS: PCP Family Medicine; Visit Provider Family Medicine
DX: E11.9 Type 2 diabetes mellitus without complications (principal)
CPT/HCPCS: 82043; 82570

== ENCOUNTER 2022-08-30 00:22 | Outpatient (CLI) | payer MEDICARE, SELFPAY ==
--- NOTE | 2022-08-30 07:00 | DI.RAD_ITS ---
Exam(s) RF BARIUM SWALLOW EXAM: RF BARIUM SWALLOW CLINICAL HISTORY: dysphagia,R13.10 TECHNIQUE: 2D and realtime digital imaging was performed. CONTRAST MATERIAL: Oral barium Oral water soluble contrast was administered. COMPARISON: No exams were available for comparison FINDINGS: ESOPHAGRAM: Swallowing mechanism appears grossly intact. No aspiration evident. No evidence of hypertense upper esophageal sphincter nor Zenker's diverticulum nor proximal esophageal stricture. Caliber of the esophagus is normal. There is a small inconsistent sliding-type hiatal hernia as well as mild inconsistent Schatzki ring demonstrated. No evidence of achalasia. No prominent reflux dem onstrated. IMPRESSION: Small inconsistent sliding-type hiatal hernia and Schatzki ring. No prominent reflux demonstrated. No aspiration evident. However, given this patient's symptoms if clinically indicated follow-up josie fied barium swallow can be performed with the speech therapist in our department. RADIATION DOSE DELIVERED: lalo Rebolledo=57.1 mGy
[2022-08-30] MEDS: Simethicone/Sod Bicarb/Cit Ac, 4 gram PACKET 1 PACKET PO (11:12)
[2022-08-30] MEDS: Barium Sulfate 60% W/V 355 ML BTL PO (11:14)
[2022-08-30] MEDS: Barium Sulfate 98% W/W 140 ML BTL PO (11:15)
== END 2022-08-30 00:42 ==
LOC: DI 00:22
PROVIDERS: PCP Family Medicine; Visit Provider Family Medicine
DX: R13.10 Dysphagia, unspecified (principal); K44.9 Diaphragmatic hernia without obstruction or gangrene; K22.2 Esophageal obstruction
CPT/HCPCS: 74221; J3490

== ENCOUNTER 2022-10-11 20:07 | Outpatient (REF) | payer MEDICARE, SELFPAY | END 2022-10-11 20:08 | disposition home or self-care (01) | LOC: NCHCN 20:07 | PROVIDERS: PCP Family Medicine; Visit Provider Nurse Practitioner Family | DX: N89.8 Other specified noninflammatory disorders of vagina (principal) | CPT/HCPCS: 87480; 87510; 87660 ==

== ENCOUNTER 2022-10-16 02:06 | Outpatient (CLI) | payer MEDICARE, SELFPAY ==
--- NOTE | 2022-10-16 07:00 | DI.MAMMO_ITS ---
Exam(s) MAMMO SCREENING EXAM: MAMMO SCREENING CLINICAL HISTORY: screening,Z12.39 TECHNIQUE: Bilateral full field digital CC and MLO mammographic images were obtained with 3D tomosyn thesis and utilizing computer aided detection (CAD). COMPARISON: Available for comparison. FINDINGS: Masses/Architectural Distortion: None seen. Microcalcifications: No suspicious pleomorphic-type are seen. Skin Thickening/Nipple Retraction: None. IMPRESSION: 1. No significant interval change with no specific features of malignancy noted. 2. Unless there is more urgent need, screening mammography is recommended, as per [place] [employer] guidelines. BI-RADS Category 1 - Negative Breast Density - Category B - Scattered areas of fibroglandular density Breast density category C or D implies that the patient has dense breast tissue. Dense breast tissue is very common and is not abnormal but dense breast tissue can make it harder to find cancer on a ma mmogram. Also, dense breast tissue may increase their breast cancer risk. This information about the result of the mammogram report was provided to the patient to raise their awareness. Use this report when you speak with the patient about their risks for breast cancer, which includes their family hist ory. At that time, you may recommend for more screening tests (Ultrasound or MRI) as they might be us eful based on their risk. A negative radiographic report should not delay biopsy if a dominant or clinically suspicious mass is present. Up to ten percent of cancers are not identified on mammography. A negative report may reinforce clinical impression. Adenosis and dense breasts may obscure an underlying neoplasm. False positive reports average 6 to 10%. Patient will receive a letter notifying them of these results.
== END 2022-10-16 02:26 ==
LOC: DI 02:06
PROVIDERS: PCP Family Medicine; Visit Provider Family Medicine
DX: Z12.31 Encounter for screening mammogram for malignant neoplasm of breast (principal)
CPT/HCPCS: 77063; 77067

== ENCOUNTER 2022-11-08 08:42 | Day surgery (SDC) | payer MEDICARE, SELFPAY ==
[2022-11-08] MEDS: Tropicam./Phenyleph. (1/2.5%) 5 ML BTL OS ×3 (09:16→09:27)
[2022-11-08 09:17] VITALS: BP 174/79; PULSE 62; RESP 18; TEMP 36.8; O2SAT 96
--- NOTE | 2022-11-08 09:29 | W.ANESPRE ---
General Info Date of Service Date Performed: 11/08/22 Height: 5 ft 3 in Weight: 87.3 kg Body Mass Index (BMI): 34.0 Surgical Procedure: Operation Date: 11/08/22 11:40 Proposed Procedure Side Surgeon p Cataract Extraction with IOL Implant Left Tip Haywood MD Meds Allergies and Home Medications Allergies Allergy/AdvReac Type Severity Reaction Status Date / Time Penicillins Allergy Severe HIVES Verified 11/08/22 09:04 celery Allergy Intermediate SNEEZING Verified 11/08/22 09:05 AND RASH latex Allergy Intermediate RASH Verified 11/08/22 09:06 niacin Allergy Intermediate HIVES Verified 11/08/22 09:06 atorvastatin AdvReac Intermediate VOMITING/DI Verified 11/08/22 09:06 ZZINESS gabapentin AdvReac Intermediate Other (See Verified 11/08/22 09:06 Comment) gemfibrozil AdvReac Intermediate Verified 11/08/22 09:07 nifedipine AdvReac Intermediate cough Verified 11/08/22 09:07 rofecoxib AdvReac Intermediate stomach Verified 11/08/22 09:07 upset Home Medication Medication Instructions Recorded cholecalciferol (vitamin D3) 25 1,000 unit PO DAILY ##180 01/27/13 mcg (1,000 unit) capsule multivitamin (Multi-Day tablet) 1 ea PO DAILY 10/07/16 magnesium chloride 64 mg 64 mg PO DAILY #90 tab-caps 11/24/17 (magnesium chloride) tablet,delayed release (Mag 64) vitamin B complex (B-Complex 1 tab PO QWEEK 10/20/18 tablet) levothyroxine 125 mcg tablet 125 mcg PO DAILY #90 tabs 12/07/21 allopurinol 300 mg tablet 150 mg PO DAILY #45 tab-caps 08/27/22 famotidine 20 mg tablet 20 mg PO BID PRN heartburn #180 08/27/22 tabs furosemide 80 mg tablet (Lasix) 40 mg PO QAM #90 tab-caps 08/27/22 metformin 500 mg tablet 500 mg PO BID #180 tabs 08/27/22 potassium chloride 20 mEq 20 meq PO DAILY #90 tab-caps 08/27/22 tablet,extended release(part/cryst) simvastatin 10 mg tablet 10 mg PO DAILY #90 tabs 08/27/22 spironolactone 25 mg tablet 25 mg PO DAILY #180 tab-caps 08/27/22 (Aldactone) dapagliflozin 10 mg tablet 10 mg PO QAM #30 tabs 09/03/22 (Farxiga) Current Visit Medications: Current Medications Generic Name Dose Route Start Last Admin Trade Name Freq PRN Reason Stop Dose Admin Acetaminophen 1,000 mg 11/08/22 06:00 Acetaminophen 500 Mg Tab PO Q4H PRN PRN Miscellaneous Medication 0 ml 11/08/22 06:00 11/08/22 09:27 Tropicam./Phenyleph. (1/2.5%) 5 Ml Btl OS 1 drp DIRECTED EUGENIA Administration Miscellaneous Medication 0 ml 11/08/22 06:00 Prednisolone 1%, Moxifloxacin 0.5%, Nepafenac 0.1% 5ml Btl OS DIRECTED EUGENIA Tetracaine HCl 0 ml 11/08/22 06:00 Tetracaine 0.5% 4 Ml Btl OS DIRECTED EUGENIA PFSH Active Problems Active Problems: Problem Status Onset Code Complete tear of rotator cuff 12/03/16 M75.120 Diabetes mellitus 10/01/16 E11.9 Essential hypertension 08/03/13 I10 Generalized osteoarthrosis M15.9 Gout M10.9 Hemorrhoids K64.9 Hiatal hernia K44.9 Hyperlipidemia E78.5 Hypothyroidism 04/12/13 E03.9 Increased BMI R63.8 Retinal detachment 10/20/08 H33.20 Sleep apnea G47.30 Lesion of pancreas K86.9 Thyroid cyst E04.1 Pulmonary nodule R91.1 Neuralgia M79.2 Multinodular thyroid E04.2 Advance care planning Z71.89 Hip pain, bilateral M25.551, M25.552 Spinal stenosis at L4-L5 level M48.061 Waddling gait determined by examination R26.89 Hypothyroid E03.9 Dysphagia R13.10 Left shoulder pain M25.512 Onychomycosis B35.1 Hiatal hernia K44.9 Esophageal abnormality K22.9 Vaginal itching N89.8 Nuclear age-related cataract, left eye H25.12 Posterior subcapsular age-related cataract of left eye H25.042 Medical History Medical History Acute thoracic back pain Allergic conjunctivitis Ankle pain, right Back pain Back pain, thoracic Cardiomegaly (06/26/01) w/ echo in 2001; concentric LVH w/ EF 68%; echo 2005-systolic murmur; LVH, Mild LAE; diastolic dysfunction; EF-70%; bilateral enlargement Cardiomyopathy (01/13/17) By MPI 01/11 Chronic cough (10/31/15) Constipation COVID Hallucination, visual Hematuria Low back pain (06/26/06) T-pain; DISH by xray; Low back pain Paresthesia of right foot Radicular low back pain Seizure remote Skin lesion of chest wall Tachycardia-bradycardia (11/24/17) PAC,SYMPTOMATIC Traumatic injury of head (07/06/15) Vertigo Vision changes Medical History Comments:: remote hx of passing out after local anesthetic in hand Surgical History Surgical History Arthroplasty of knee (~2009) LEFT, pt .report reconstruction and no hardware BONE SPUR SPUR AND CYST REMOVAL Colonoscopy - MAC 08/08/14 HAND (08/06/11) RIGHT THUMB BONE REMOVED History of section NECK CYSTECTOMY PROCEDURES OTHER SOFT TISSUE EXCIS, 02/26 Excision of Lipoma right neck Rotator Cuff Repair 04/07/17 DR. ROBBINS (L) Status post cholecystectomy Tobacco Smoking/Tobacco Use Status: Never Passive smoking exposure: Yes Second hand exposure: Yes (25+ YEARS AGO) Alcohol Alcohol Intake: never Substance Use Substance use: Never Substance use type: does not use Vital Signs and Lab Results Vital Signs Most Recent Vital Signs in EMR: Most Recent Vital Signs Temp Pulse Resp BP Pulse Ox 36.8 C 62 18 174/79 H 96 11/08/22 09:17 11/08/22 09:17 11/08/22 09:17 11/08/22 09:17 11/08/22 09:17 Point of Care Results Point of Care Results: Finger Stick Blood Glucose 227 11/08/22 09:07 Lab Results Blood Type / Crossmatch: No Data to Display Complete Blood Count: No Data to Display Complete Metabolic Panel: No Data to Display Liver Function Panel: No Data to Display Coagulation Panel: No Data to Display Cardiac Panel: No Data to Display Arterial Blood Gas: No Data to Display Venous Blood Gas: No Data to Display Pancreas Panel: No Data to Display Thyroid Panel: No Data to Display Infectious Disease: No Data to Display Blood Cultures: No Data to Display Toxicology Panel: No Data to Display Imaging and Studies Imaging and Studies Study information below may be from another EMR and interpreted by another provider. Please see original notes in EMR for more complete details. Stress Test Summary: Impressions: - Abnormal study after maximal exercise. - Abnormal contraction consistent with cardiomyopathy. Summary: 1. Myocardial perfusion imaging: There is a small sized, moderately intense, fixed defect involving the apical wall(s). This suggests small myocardial infarction in the distribution of the left anterior descending coronary artery. Overall ischemia: minimal. 2. The calculated left ventricular ejection fraction after stress: 44%. Diffuse left ventricular regional motion abnormalities. 3. Stress ECG conclusions: Davies treadmill score: 8. This score predicts a low risk of cardiac events.01/13 Echocardiogram Summary: Summary: 1. Left ventricle: The cavity size was normal. Systolic function was normal. The estimated ejection fraction was 60-65%. 2. Mitral valve: There was mild regurgitation. 3. Right ventricle: The cavity size was normal. Wall thickness was normal. Systolic function was normal. 4. Atrial septum: No defect or patent foramen ovale was identified. 5. Pulmonary arteries: Pulmonary systolic pressure was in the range of 25mm Hg to 35mm Hg. 6. Inferior vena cava: The vessel was normal in size. The respirophasic diameter changes were in the normal range (greater than or equal to 50%), consistent with normal central venous pressure. Anesthesia Assessment and Plan Anesthesia History Personal History: Other Family History: No Family History of Anesthesia Complications Exercise Tolerance Exercise Tolerance: Metabolic Equivalents>4 Cardiac & Pulmonary Exam Cardiac Exam: Normal S1/S2 Heart Sounds Pulmonary Exam: Clear Bilateral Breath Sounds Implantable Cardiac Device Does patient have a Pacemaker or an ICD?: No Airway Exam Known Difficult Airway: No Mallampati Class: 2 Mouth Opening: Normal (> 3cm) Thyromental Distance: Greater than 3 cm Neck Range of Motion: Full ROM Neck Circumference: Normal Teeth Condition: Normal Dentition ASA Classification ASA Score: ASA 2 Emergency Case?: No NPO Status NPO Status: NPO Clears >2 hours, Solids >8 hours Anesthesia Plan Resuscitation Status: Full Code Anesthesia Technique: MAC Anesthesia Airway Planned: Natural Airway Monitors Used: Standard Monitors Preoperative Comments:: Declines sedation. GERD not well controlled. No cardiac issues
[2022-11-08 09:41] VITALS: BMI 34.0
[2022-11-08] MEDS: Tetracaine 0.5% 4 ML BTL OS (11:15)
[2022-11-08] MEDS: Duovisc Viscoelastic System EACH 1 EACH (11:21)
[2022-11-08] MEDS: Lidocaine 1% Pres-Free 5 ML VIAL (11:21)
[2022-11-08] MEDS: Balanced Salt Soln.-PLUS 500 ML BAG (11:21)
[2022-11-08] MEDS: Phenylephrine/Lidocaine (15/10) MG/ML 1 ML VIAL (11:22)
[2022-11-08] MEDS: Povidone-Iodine Ophth 30 ML BTL (11:23)
[2022-11-08 11:33] VITALS: BP 156/68; PULSE 57; RESP 16; TEMP 36.5; O2SAT 97
--- NOTE | 2022-11-08 11:33 | ROE_ITS ---
Date of service: 11/08/22 Time of Service: 11:34 Operative Note Operative Note DATE OF PROCEDURE: 11/08/22 PRE-OP DIAGNOSIS: Nuclear/posterior subcapsular cataract, left eye POST-OP DIAGNOSIS: same PROCEDURE: Cataract extraction using phacoemulsification with intraocular lens implant, left eye SURGEON: Tip Haywood ANESTHESIA TYPE: Local By Surgeon and MAC Refer to Anesthesia Record PATHOLOGY: none sent COMPLICATIONS: None Patient was transported to: same day Patient's condition: stable Implants: [employer]nis Eyhance [id number] Indications: Progressive decreased vision due to cataract, left eye Procedure Description: CATARACT SURGERY OPERATIVE REPORT PREOPERATIVE DIAGNOSIS: 1. Nuclear/posterior subcapsular cataract, left eye POSTOPERATIVE DIAGNOSIS: Same OPERATION: 1. Cataract extraction using phacoemulsification with posterior chamber intraocular lens implant, left eye. IOL: IOL Fitness [employer] Manager/Model: [employer]nis Eyhance DIB00 IOL Power: + 18.5 diopters IOL Serial Number: [id number] Optic Diameter: 6.0 mm Haptic/Overall Diameter: 13.0 mm PHACO INFO: Jose [employer]ly[employer]urion Vision System with OZil and Active [employer]uidics Cumulative Dispersed Energy (CDE): 8.34 seconds SURGEON: Tip Haywood MD, MARSHALL ANESTHESIA: Monitored A [facility] (MAC), with local sub-tenon's anesthetic infiltration COMPLICATIONS: None SPECIMENS: None INDICATIONS FOR PROCEDURE: The patient is a 77-year-old lady with history of diminished visual acuity in her left eye secondary to the development of nuclear/posterior subcapsular cataract. She is significantly symptomatic that she desires cataract surgery and attempt to improve and maximize her vision. See clinical chart for detailed information. PROCEDURE: The correct surgical eye was identified and marked as the left eye a nd the pupil was dilated in the preoperative area using mydriatics and cycloplegics. The dilated pupil size was 5.5 mm. . The patient elected to proceed without oral sedation. The patient was brought to the operating room where cardiopulmonary monitoring was instituted and surgical time-out was performed, confirming the correct operative eye and IOL power. Topical anesthesia was administered and ophthalmic povidone-iodine 5% was instilled into the conjunctival fornices. Lidocaine gel was applied to the cornea and the mague-ocular area was prepped with Betadine 10% solution and draped in the usual sterile fashion for intraocular surgery, including an aperture drape. A Tegaderm transparent film dressing was cut in half and used to cover the lashes and lid margins. Care was taken to sequester the lashes and lid margins under the Tegaderm dressing. A lid speculum was placed between the lids of the operative eye and the Jose [employer] Revalia operating microscope was maneuvered into position. Kevon scissors were then used to make a conjunctival buttonhole approximately 6mm posterior to the limbus in the inferonasal quadrant. Blunt dissection was carried out to expose bare sclera, and a blunt-tipped sub-tenon?s anesthesia cannula was introduced and passed posteriorly along the globe where non- preserved plain lidocaine was injected into posterior sub-Tenon?s space. A sideport knife was used to make a paracentesis port superiorly/superiortemporally. Intraocular phenylephrine/lidocaine was injected int the anterior chamber.. The anterior chamber was filled with viscoelastic. A keratome knife was used to construct a 2-plane near-clear corneal tunnel extending 2.0mm into clear cornea temporally. A flap was raised on the anterior capsule and capsulorhexis forceps were used to complete a continuous curvilinear capsulorhexis of 5.0 mm. Balanced salt solution was then used to perform cortical cleaving hydrodissection and nuclear hydrodelineation until the lens could be freely rotated within the capsular bag. The lens nucleus was then disassembled and removed within the capsular bag and iris plane using phacoemulsification. Residual cortical material was removed using the 45-degree angled silicone I/A tip with 0.3mm port. The posterior capsule was carefully polished to remove as much residual lens epithelial cells as safely possible. The capsular bag was th en inflated and the anterior chamber deepened with viscoelastic. The lens implant described above was inserted into the capsular bag using the River [employer] River Simplicity pre-loaded injector. . A Kuglen hook was used to dial the IOL into position. Residual viscoelastic was then removed first from posterior to the IOL, then from the anterior chamber using the I/A handpiece. The lens implant was noted to center nicely within the capsular bag. The incisions were stromally hydrated, and the anterior chamber was reformed using BSS. Then 0.5cc of moxifloxacin 1.0mg/ml were injected into the capsular bag and anterior chamber. The incisions were checked with a Weck spear and found to be secure. Several drops of ophthalmic povidone-iodine 5% were then applied to the eye followed by two dr ops of Imprimis combination prednisolone/moxifloxacin/nepafenac solution. The drapes were removed and a clear plastic protective eye shield was placed over the eye. The patient was then returned to [facility] Day Surgery in stable condition.
--- NOTE | 2022-11-08 11:33 | W.PM.DSUDISC ---
Date of service: 11/08/22 Time of Service: 11:33 Discharge Plan Disposition Patient Disposition: Home Discharge Details Attending Provider: Tip Haywood Primary Care Provider: Helen Jimenez Home Meds and New Rx's Prescriptions: No Action allopurinol 300 mg tablet 150 mg PO DAILY Qty: 45 6RF furosemide [Lasix] 80 mg tablet 40 mg PO QAM Qty: 90 5RF potassium chloride 20 mEq tablet,ER particles/crystals 20 meq PO DAILY Qty: 90 12RF simvastatin 10 mg tablet 10 mg PO DAILY Qty: 90 4RF spironolactone [Aldactone] 25 mg tablet 25 mg PO DAILY Qty: 180 4RF famotidine 20 mg tablet 20 mg PO BID PRN (Reason: heartburn) Qty: 180 3RF metformin 500 mg tablet 500 mg PO BID Qty: 180 4RF cholecalciferol (vitamin D3) 1,000 UNIT capsule 1,000 unit PO DAILY Qty: 180 Rx Instructions: 2 CAPS DAILY multivitamin [Multi-Day] 1 EACH tablet 1 ea PO DAILY Mag 64 64 MG tablet,delayed release (DR/EC) 64 mg PO DAILY Qty: 90 12RF vitamin B complex [B-Complex] tablet 1 tab PO QWEEK levothyroxine 125 mcg tablet 125 mcg PO DAILY Qty: 90 5RF Farxiga 10 mg tablet 10 mg PO QAM Qty: 30 12RF Discharge Instructions Stand Alone Forms: Post-op Topical Cataract, kB [place] (DSU) Discharge Orders Discharge Orders: Discharge Order (Routine); Ordered 11/08/22 Ordered By: Tip Hayowod DS: Diagnosis Discharge Diagnosis (1) Nuclear age-related cataract, left eye: Status: Resolved (2) Posterior subcapsular age-related cataract of left eye: Status: Resolved
--- NOTE | 2022-11-08 12:18 | W.ANESPOSTOP ---
Postoperative Evaluation Date, Time and Location Date Performed: 11/08/22 Time Performed: 11:30 Patient Location: Day Surgery Unit Vital Signs Most Recent Imported Vital Signs: Most Recent Vital Signs Temp Pulse Resp BP Pulse Ox 36.5 C 57 L 16 156/68 H 97 11/08/22 11:33 11/08/22 11:33 11/08/22 11:33 11/08/22 11:33 11/08/22 11:33 Pain Score Most Recent Pain Score: Most Recent Pain Score Pain Level 0 11/08/22 11:33 Assessment Mental Status: Awake (Alert & Oriented to Patient Baseline) Airway and Respiratory Function: Patent airway with normal (patient baseline) respiratory exam Cardiovascular Function: Hemodynamically Stable Hydration Status: Adequately Hydrated Nausea & Vomiting: No Nausea or Vomiting Pain: Pt. Denies Any Pain Peripheral Nerve Block: Patient did not receive a nerve block
== END 2022-11-08 12:02 | disposition home or self-care (01) ==
LOC: SUR 08:43
PROVIDERS: PCP Family Medicine; Visit Provider Ophthalmology
PROC: (CPT 66984; principal; 2022-11-08 11:30)
DX: H25.12 Age-related nuclear cataract, left eye (principal); H25.042 Posterior subcapsular polar age-related cataract, left eye
CPT/HCPCS: 66984; V2632

== ENCOUNTER 2023-06-02 01:00 | Outpatient (CLI) | payer MEDICARE, SELFPAY ==
[2023-06-02 12:41] LABS: Hemoglobin A1C 8.2 % (<5.7)
== END 2023-06-02 01:01 | disposition home or self-care (01) ==
PROVIDERS: PCP Family Medicine; Visit Provider Family Medicine
DX: E11.9 Type 2 diabetes mellitus without complications (principal)
CPT/HCPCS: 36415; 83036

== ENCOUNTER 2023-07-15 02:32 | Outpatient (CLI) | payer MEDICARE, SELFPAY ==
[2023-07-15 12:43] LABS: COMMENT (LAB VIEW ONLY) 202.37 mg/dL; Microalb ug/mg Crea 45.9 ug/mg Cr
[2023-07-15 13:06] LABS: ALT 38 U/L (14-59); AST 18 U/L (15-37); Albumin 3.6 g/dL (3.4-5.0); Alkaline Phosphatase 116 U/L (46-116); Anion Gap 6.7 mmol/L (3-11); BUN 24 mg/dL (7-18); CO2 28.3 mmol/L (21.0-32.0); CREATININE 1.1 mg/dL (0.55-1.02); Calcium 9.4 mg/dL (8.5-10.1); Chloride 103 mmol/L (98-107); Cholesterol 197 mg/dL (<200); Estimated GFR 52.08 (mL/min/1.73m2); Glucose 192 mg/dL (74-106); HDL Cholesterol 37 mg/dL (40-60); Potassium 3.9 mmol/L (3.5-5.1); Sodium 138 mmol/L (136-145); TSH (W/Ref FT4) 1.59 uIU/mL (0.36-3.74); Total Protein 7.2 g/dL (6.4-8.2); Triglyceride 415 mg/dL (<150)
[2023-07-15 13:19] LABS: LDL CHOLESTEROL 86 mg/dL (<100)
== END 2023-07-15 02:33 | disposition home or self-care (01) ==
LOC: LOS 02:33
PROVIDERS: PCP Family Medicine; Visit Provider Family Medicine
DX: I10 Essential (primary) hypertension (principal); E11.9 Type 2 diabetes mellitus without complications; E03.9 Hypothyroidism, unspecified
CPT/HCPCS: 36415; 80053; 80061; 83721; 82043; 82570; 84443

== ENCOUNTER 2024-08-19 09:37 | Outpatient (CLI) | payer MEDICARE, SELFPAY ==
[2024-08-19 13:10] LABS: ALT 40 U/L (14-59); AST 21 U/L (15-37); Albumin 3.9 g/dL (3.4-5.0); Alkaline Phosphatase 138 U/L (46-116); Anion Gap 4.9 mmol/L (3-11); BUN 21 mg/dL (7-18); Bilirubin, Total 0.86 mg/dL (0.2-1.0); CO2 31.1 mmol/L (21.0-32.0); CREATININE 1.3 mg/dL (0.55-1.02); Calcium 9.7 mg/dL (8.5-10.1); Calculated LDL 72 mg/dL (<100); Chloride 106 mmol/L (98-107); Cholesterol 166 mg/dL (<200); Estimated GFR 42.35 (mL/min/1.73m2); Glucose 252 mg/dL (74-106); HDL Cholesterol 47 mg/dL (40-60); Potassium 4.7 mmol/L (3.5-5.1); Sodium 142 mmol/L (136-145); TSH (W/Ref FT4) 2.35 uIU/mL (0.36-3.74); Total Protein 7.5 g/dL (6.4-8.2); Triglyceride 239 mg/dL (<150)
[2024-08-19 13:53] LABS: COMMENT (LAB VIEW ONLY) 75.79 mg/dL
== END 2024-08-19 09:38 | disposition home or self-care (01) ==
LOC: LOS 09:38
PROVIDERS: PCP Family Medicine; Visit Provider Family Medicine
DX: E03.9 Hypothyroidism, unspecified (principal); I10 Essential (primary) hypertension; E11.9 Type 2 diabetes mellitus without complications
CPT/HCPCS: 36415; 80053; 80061; 82043; 82570; 84443

== ENCOUNTER 2024-10-20 01:19 | Outpatient (CLI) | payer MEDICARE, SELFPAY ==
--- NOTE | 2024-10-20 06:15 | DI.MAMMO_ITS ---
Exam(s) MAMMO SCREENING EXAM: MAMMO SCREENING CLINICAL HISTORY: screening,z12.39 TECHNIQUE: Mammograms were interpreted according to the usual protocol including computer analysis w [employer] CAD system, tomosynthesis and C-view imaging. COMPARISON: 2014 through 2022 FINDINGS: The breasts are composed of scattered fibroglandular densities, Breast Density category B. No suspicious masses or suspicious microcalcifications are seen. No skin thickening or abnormal axillary lymph nodes are seen. There has been no significant change from prior exams. IMPRESSION: BI-RADS Category 1, Negative mammogram Yearly screening mammography is recommended. Breast Density - Category B, scattered fibroglandular densities. A negative radiographic report should not delay biopsy if a dominant or clinically suspicious mass is present. Up to ten percent of cancers are not identified on mammography. A negative report may reinforce clinical impression. Adenosis and dense breasts may obscure an underlying neoplasm. False positive reports average 6 to 10%. Patient will receive a letter notifying them of these results.
== END 2024-10-20 01:39 ==
PROVIDERS: PCP Family Medicine; Visit Provider Family Medicine
DX: Z12.31 Encounter for screening mammogram for malignant neoplasm of breast (principal); R92.323 Mammographic fibroglandular density, bilateral breasts
CPT/HCPCS: 77063; 77067

== ENCOUNTER 2025-01-10 00:23 | Outpatient (CLI) | payer MEDICARE, SELFPAY ==
--- NOTE | 2025-01-10 09:00 | DI.US_ITS ---
Exam(s) US SOFT TISSUE HEAD OR NECK EXAM: US SOFT TISSUE HEAD OR NECK CLINICAL HISTORY: painful neck mass with rotation , ? lipoma,r22.1. TECHNIQUE: Ultrasound was performed using standard protocol. COMPARISON: MR MR BRAIN WO from 11/09/2020 FINDINGS: Sonographic assessment utilizing grayscale and color Doppler imaging was performed and targeted to the area of clinical concern. In the area of palpable abnormality, there is a circumscribed, homogeneous fatty echogenicity area measuring 2.9 x 0.7 x 3.3 cm, consistent with a simple lipoma. No vascularity. IMPRESSION: 3.3 centimeter lipoma corresponds to the palpable abnormality. DATA REPOSITORY:
--- NOTE | 2025-01-10 09:00 | DI.RAD_ITS ---
Exam(s) XR CERVICAL SPINE COMP 4-5V EXAM: XR CERVICAL SPINE COMP 4-5V CLINICAL HISTORY: neck pain w movement,neck mass,m79.2,r22.1. TECHNIQUE: 2D digital imaging was performed. Five views were performed. COMPARISON: CR XR THORACIC SPINE COMPLETE from 09/23/2019 FINDINGS: BONES: No fracture or destructive lesion. DISKS: Moderate narrowing of the C 2 3 there C4-5 disc spaces. Severe narrowing of the C5-6 and C6-7 disc spaces. Osteophytes present at the lower levels. Severe facet degenerative changes. Neural foraminal narrowing is present at C3- 4 and C4-5 on the right and C3-4 through C5-6 on the left. ALIGNMENT: Degenerative straightening of normal cervical lordosis. Degenerative changes at the anterior arch of C1 and odontoid. SOFT TISSUE: Normal. The lung apices are clear. IMPRESSION: Advanced degenerative changes DATA REPOSITORY: RADIATION DOSE DELIVERED:
== END 2025-01-10 00:43 ==
LOC: DI 00:23
PROVIDERS: PCP Family Medicine; Visit Provider Family Medicine
DX: D17.0 Benign lipomatous neoplasm of skin and subcutaneous tissue of head, face and neck (principal); M79.2 Neuralgia and neuritis, unspecified; M48.02 Spinal stenosis, cervical region
CPT/HCPCS: 76536; 72050

== ENCOUNTER 2025-04-14 15:54 | Outpatient (REF) | payer MEDICARE, SELFPAY ==
--- NOTE | 2025-04-14 07:44 | SKI_PTH ---
PATIENT: Ashely Matthews LOC: [facility] U#:[id number] AGE/SX: 79/F ROOM: RE04/14/[address]: Myron Robbins MD : 1945 BED: DIS: 04/14/2025 SPEC #: [id number] RECD: 04/14/25 17:03 STATUS: ROBINA CHURCH #: [id number] PÉREZ: 04/14/25 07:[address]: Myron Robbins DEPT: Surgical Specimen RECD BY: Nathalia Jay ENTERED: 04/14/25 17:03 SP TYPE: LATIA HUTCHINS DR: Helen Jimenez MD, DC Tissues: 1 - SKIN BIOPSY(SHAVE/PUNCH) Procedures: GROSS AND MICRO LEVEL 3 Comments: [id number]
== END 2025-04-14 15:55 | disposition home or self-care (01) ==
LOC: LBN 15:54
PROVIDERS: PCP Family Medicine; Visit Provider Otolaryngology
DX: R22.0 Localized swelling, mass and lump, head (principal)
CPT/HCPCS: 88304; 88305